=== PATIENT | female | born 1960 | race Caucasian/White ===

== ENCOUNTER 2016-11-08 19:04 | Emergency (ER) | payer MEDICARE, OTHER ==
--- NOTE | 2016-11-08 20:51 | ED ---
URI HPI - General Chief Complaint: Upper Respiratory Infection Stated Complaint: Sinus Problems Time Seen by Provider: 11/08/16 20:27 Source: patient Mode of arrival: ambulatory Limitations: no limitations - History of Present Illness Initial Comments: 56-year-old female patient was sent to emergency department today for complaints of upper respiratory symptoms. Patient states that symptoms started with a sore throat 5 days ago, the sore throat has since resolved however she now has nasal drainage and facial pressure. States that the nasal drainage is clear. States that today she started to have a dry cough. She states she has been taking Sudafed which did stop the nasal drainage however she is still stuffy. She states that she is getting headaches from this. Patient denies any recent fever, chills, sputum production, shortness breath, chest pain, abdominal pain, nausea, vomiting, diarrhea, constipation, back pain, numbness, tingling, weakness, hematuria, headache, visual changes, or any other complaints. Patient does admit to smoking cigarettes. - Related Data Home Medications Medication Instructions Recorded Confirmed Pseudoephedrine [Sudafed] 30 mg PO Q4H PRN 11/08/16 11/08/16 Simvastatin [Zocor] 40 mg PO HS 11/08/16 11/08/16 traMADol HCL [Ultram] 50 mg PO BID PRN 11/08/16 11/08/16 Previous Rx's Medication Instructions Recorded Loratadine-Pseudoeph 10-240 mg 1 each PO DAILY #10 tab 11/08/16 [Claritin-D 24 Hr] Triamcinolone Acetonide [Nasacort] 2 spray EA NOSTRIL DAILY #1 bottle 11/08/16 Allergies Allergy/AdvReac Type Severity Reaction Status Date / Time aspirin Allergy NOSE BLEEDS Verified 11/08/16 20:11 cephalexin monohydrate Allergy Swelling/RA Verified 11/08/16 20:11 [From Keflex] SH/HIVES metformin HCl Allergy Rash/Hives/ Verified 11/08/16 20:11 [From Glucophage] SWELLING Penicillins Allergy Rash/Hives/ Verified 11/08/16 20:11 SWELLING Review of Systems ROS Statement: Those systems with pertinent positive or pertinent negative responses have been documented in the HPI. ROS Other: All systems not noted in ROS Statement are negative. Past Medical History Past Medical History: Cancer, Osteoarthritis (OA), Sleep Apnea/CPAP/BIPAP Additional Past Medical History / Comment(s): back pain, thyroid CA, pinched nerve in neck History of Any Multi-Drug Resistant Organisms: None Reported Past Surgical History: Cholecystectomy, Hysterectomy Additional Past Surgical History / Comment(s): LT LEG SKIN GRAFT, PARTIAL THYROIDECTOMY, carpal tunnel, RT CATARACT, Past Anesthesia/Blood Transfusion Reactions: Postoperative Nausea & Vomiting ( PONV) Past Psychological History: No Psychological Hx Reported, Depression Smoking Status: Current every day smoker Past Alcohol Use History: None Reported Past Drug Use History: None Reported - Past Family History Sister(s) Family Medical History: Cancer Additional Family Medical History / Comment(s): ONE WITH COLON CA, ONE WITH LUNG CA General Exam Limitations: no limitations General appearance: alert, in no apparent distress Eye exam: Present: normal appearance, PERRL, EOMI. Absent: scleral icterus, conjunctival injection, periorbital swelling ENT exam: Present: normal exam, normal oropharynx, mucous membranes moist Neck exam: Present: normal inspection, full ROM. Absent: tenderness, meningismus, lymphadenopathy Respiratory exam: Present: normal lung sounds bilaterally. Absent: respiratory distress, wheezes, rales, rhonchi, stridor Cardiovascular Exam: Present: regular rate, normal rhythm, normal heart sounds. Absent: systolic murmur, diastolic murmur, rubs, gallop, clicks GI/Abdominal exam: Present: soft, normal bowel sounds. Absent: distended, tenderness, guarding, rebound, rigid Extremities exam: Present: normal inspection, full ROM, normal capillary refill. Absent: tenderness, pedal edema, joint swelling, calf tenderness Back exam: Present: normal inspection Neurological exam: Present: alert, oriented X3, CN II-XII intact Psychiatric exam: Present: normal affect, normal mood Skin exam: Present: warm, dry, intact, normal color. Absent: rash Course Vital Signs 11/08/16 11/08/16 11/08/16 19:20 19:25 21:01 Temperature 99.3 F 97.6 F Pulse Rate 95 94 Respiratory 20 18 Rate Blood Pressure 176/104 167/74 138/63 O2 Sat by Pulse 96 94 L Oximetry Medical Decision Making - Medical Decision Making 56-year-old female patient presented to emergency department today for upper respiratory symptoms. Physical exam is unremarkable, lungs are clear. Vital signs stable. Low suspicion for pneumonia due to patient being afebrile, no sputum production, no chest discomfort, however did offer patient a chest x-ray to rule this out. Patient refuses chest x-ray and stated she just wondered which [id number] medication she should use to treat her symptoms. Did recommend Claritin-D as well as Nasacort nasal spray. Did discuss with her that her symptoms are most likely caused from a virus and do not require antibiotics at this time. She was instructed to follow-up with her primary care physician for a recheck in 1-2 days. She was instructed to return here immediately should develop any fever, sputum production, chest pain, or any other new, worsening, or concerning symptoms. Patient verbalizes understanding and agrees with this plan. Disposition Clinical Impression: Upper respiratory infection Disposition: HOME SELF-CARE Condition: Good Instructions: Upper Respiratory Infection (ED) Additional Instructions: Increase fluids. Use prescriptions as directed. Follow-up with her primary care physician for recheck in 1-2 days. Return here immediately for any new, worsening, or concerning symptoms. Prescriptions: Loratadine-Pseudoeph 10-240 mg [Claritin-D 24 Hr] 1 each PO DAILY #10 tab Triamcinolone Acetonide [Nasacort] 2 spray EA NOSTRIL DAILY #1 bottle Referrals: Frederick Sandhu MD [Primary Care Provider] - 1-2 days Time of Disposition: 20:51
[2016-11-08 21:02] VITALS: BP 138/63; PULSE 94; RESP 18; TEMP 97.6
== END 2016-11-08 21:02 | disposition home or self-care (01) ==
LOC: EC 19:04
DX: J06.9 Acute upper respiratory infection, unspecified (principal); R51 Headache; Z85.850 Personal history of malignant neoplasm of thyroid; F17.200 Nicotine dependence, unspecified, uncomplicated; Z79.899 Other long term (current) drug therapy; Z88.6 Allergy status to analgesic agent; Z88.0 Allergy status to penicillin; Z88.1 Allergy status to other antibiotic agents; Z88.8 Allergy status to other drugs, medicaments and biological substances
CPT/HCPCS: 99282

== ENCOUNTER → 2016-11-25 | Outpatient (CLI) | payer MEDICARE, OTHER ==
--- NOTE | 2016-11-25 15:01 | XR ---
EXAMINATION TYPE: XR shoulder complete LT DATE OF EXAM: 11/25/2016 CLINICAL HISTORY: Left shoulder pain for 3 weeks TECHNIQUE: Three views of the left shoulder are obtained. COMPARISON: None. FINDINGS: There is no acute fracture in the left shoulder. The humeral head is situated slightly ant erior to the scapula on the scapular Y view, however overlaps with the glenoid on the internal rotati on and anterior posterior view and therefore there is no evidence of dislocation. Mild degenerative c hanges of the glenohumeral joint and acromioclavicular joint are seen. Calcifications at the supraspi natus/subscapularis insertion relate to calcific tendinosis and could relate to underlying CPPD. Visu alized ribs appear intact with no displaced rib fracture. IMPRESSION: 1. There is no acute fracture or dislocation in the left shoulder. 2. Calcific tendinosis of the supraspinatus/subscapularis tendinous insertions on the greater tuberos ity that could relate to underlying CPPD. 3. Mild glenohumeral and acromioclavicular arthropathy.
== END | disposition home or self-care (01) ==
LOC: RADXRMAIN 13:30
PROVIDERS: ATTEND Family Medicine
DX: M12.812 Other specific arthropathies, not elsewhere classified, left shoulder (principal); M75.82 Other shoulder lesions, left shoulder

== ENCOUNTER 2018-06-08 12:03 | Emergency (ER) | payer MEDICARE, OTHER ==
[2018-06-08 12:21] VITALS: BP 130/77; PULSE 87; RESP 18; TEMP 98.2
[2018-06-08 12:32] LABS: Glucose,Whole Blood 168 mg/dL (75-99)
--- NOTE | 2018-06-08 12:44 | ED ---
Neuro HPI - General Chief Complaint: Neuro Symptoms/Deficit Stated Complaint: Lt arm numbness arm/leg feel heavy Time Seen by Provider: 06/08/18 12:24 Source: patient, RN notes reviewed, old records reviewed Mode of arrival: wheelchair Limitations: physical limitation - History of Present Illness Is the patient presenting with stroke symptoms?: Yes -: hour(s) Initial Comments: This is a 57-year-old female the ER for evaluation patient presents today for evaluation regards to not feeling well. Heaviness in her arms and legs are last night did resolve and again again started this morning around 9:30. Patient has no focal neurologic deficit weakness or symptoms and tingling in left upper and left lower extremity. No prior history of CVA Location: left arm, left leg History of same: Yes (last night self limited similar episode) Place: home Severity: mild Quality: numb (LLE), tingling (LUE) Improves With: none Worsens With: none On Anticoagulants: No Context: gradual onset Associated Symptoms: denies other symptoms - Related Data Home Medications: Home Medications Medication Instructions Recorded Confirmed No Known Home Medications 06/08/18 06/08/18 Allergies/Adverse Reactions: Allergies Allergy/AdvReac Type Severity Reaction Status Date / Time aspirin Allergy NOSE BLEEDS Verified 06/08/18 12:56 cephalexin monohydrate Allergy Swelling/RA Verified 06/08/18 12:56 [From Keflex] SH/HIVES metformin HCl Allergy Rash/Hives/ Verified 06/08/18 12:56 [From Glucophage] SWELLING Penicillins Allergy Rash/Hives/ Verified 06/08/18 12:56 SWELLING Review of Systems ROS Statement: Those systems with pertinent positive or pertinent negative responses have been documented in the HPI. ROS Other: All systems not noted in ROS Statement are negative. General Exam - General Exam Comments Initial Comments: NIH 2 Limitations: physical limitation General appearance: alert, in no apparent distress Head exam: Present: atraumatic, normocephalic, normal inspection Eye exam: Present: normal appearance, PERRL, EOMI. Absent: scleral icterus, conjunctival injection, periorbital swelling ENT exam: Present: normal exam, mucous membranes moist Neck exam: Present: normal inspection. Absent: tenderness, meningismus, lymphadenopathy Respiratory exam: Present: normal lung sounds bilaterally. Absent: respiratory distress, wheezes, rales, rhonchi, stridor Cardiovascular Exam: Present: regular rate, normal rhythm, normal heart sounds. Absent: systolic murmur, diastolic murmur, rubs, gallop, clicks GI/Abdominal exam: Present: soft, normal bowel sounds. Absent: distended, tenderness, guarding, rebound, rigid Extremities exam: Present: normal inspection, full ROM, normal capillary refill. Absent: tenderness, pedal edema, joint swelling, calf tenderness Back exam: Present: normal inspection Neurological exam: Present: alert, oriented X3, CN II-XII intact Psychiatric exam: Present: normal affect, normal mood Skin exam: Present: warm, dry, intact, normal color. Absent: rash Stroke MDM - Lab Data Result diagrams: 06/08/18 12:51 06/08/18 12:51 Lab Results 06/08/18 06/08/18 06/08/18 Range/Units 12:20 12:51 12:51 WBC 8.5 (3.8-10.6) k/uL RBC 5.41 H (3.80-5.40) m/uL Hgb 15.8 (11.4-16.0) gm/dL Hct 48.2 H (34.0-46.0) % MCV 89.1 (80.0-100.0) fL MCH 29.1 (25.0-35.0) pg MCHC 32.7 (31.0-37.0) g/dL RDW 13.2 (11.5-15.5) % Plt Count 230 (150-450) k/uL Neutrophils % 68 % Lymphocytes % 25 % Monocytes % 4 % Eosinophils % 1 % Basophils % 0 % Neutrophils # 5.7 (1.3-7.7) k/uL Lymphocytes # 2.1 (1.0-4.8) k/uL Monocytes # 0.4 (0-1.0) k/uL Eosinophils # 0.1 (0-0.7) k/uL Basophils # 0.0 (0-0.2) k/uL PT (9.0-12.0) sec INR (<1.2) APTT (22.0-30.0) sec Sodium 138 (137-145) mmol/L Potassium 4.7 (3.5-5.1) mmol/L Chloride 105 (98-107) mmol/L Carbon Dioxide 28 (22-30) mmol/L Anion Gap 5 mmol/L BUN 13 (7-17) mg/dL Creatinine 0.52 (0.52-1.04) mg/dL Est GFR (CKD-EPI)AfAm >90 (>60 ml/min/1.73 sqM) Est GFR (CKD-EPI)NonAf >90 (>60 ml/min/1.73 sqM) Glucose 162 H (74-99) mg/dL POC Glucose (mg/dL) 168 H (75-99) mg/dL POC Glu [employer] ID Lynne Hurtado Calcium 9.5 (8.4-10.2) mg/dL Total Bilirubin 0.8 (0.2-1.3) mg/dL AST 25 (14-36) U/L ALT 23 (9-52) U/L Alkaline Phosphatase 92 (38-126) U/L Troponin I (0.000-0.034) ng/mL Total Protein 7.4 (6.3-8.2) g/dL Albumin 4.2 (3.5-5.0) g/dL 06/08/18 06/08/18 Range/Units 12:51 12:51 WBC (3.8-10.6) k/uL RBC (3.80-5.40) m/uL Hgb (11.4-16.0) gm/dL Hct (34.0-46.0) % MCV (80.0-100.0) fL MCH (25.0-35.0) pg MCHC (31.0-37.0) g/dL RDW (11.5-15.5) % Plt Count (150-450) k/uL Neutrophils % % Lymphocytes % % Monocytes % % Eosinophils % % Basophils % % Neutrophils # (1.3-7.7) k/uL Lymphocytes # (1.0-4.8) k/uL Monocytes # (0-1.0) k/uL Eosinophils # (0-0.7) k/uL Basophils # (0-0.2) k/uL PT 10.2 (9.0-12.0) sec INR 0.9 (<1.2) APTT 24.1 (22.0-30.0) sec Sodium (137-145) mmol/L Potassium (3.5-5.1) mmol/L Chloride (98-107) mmol/L Carbon Dioxide (22-30) mmol/L Anion Gap mmol/L BUN (7-17) mg/dL Creatinine (0.52-1.04) mg/dL Est GFR (CKD-EPI)AfAm (>60 ml/min/1.73 sqM) Est GFR (CKD-EPI)NonAf (>60 ml/min/1.73 sqM) Glucose (74-99) mg/dL POC Glucose (mg/dL) (75-99) mg/dL POC Glu [employer] ID Calcium (8.4-10.2) mg/dL Total Bilirubin (0.2-1.3) mg/dL AST (14-36) U/L ALT (9-52) U/L Alkaline Phosphatase (38-126) U/L Troponin I <0.012 (0.000-0.034) ng/mL Total Protein (6.3-8.2) g/dL Albumin (3.5-5.0) g/dL - NIH Stroke Scale 1a. Level of Consciousness: (0) alert 1b. LOC Questions: (0) answers correctly 1c. LOC Commands: (0) performs tasks correctly 2. Best Gaze: (0) normal 3. Visual: (0) no visual loss 4. Facial Palsy: (0) normal symmetrical movement 5a. Motor Arm Left: (0) no drift 5b. Motor Arm Right: (0) no drift 6a. Motor Leg Left: (0) no drift 6b. Motor Leg Right: (0) no drift 7. Limb Ataxia: (0) absent 8. Sensory: (0) normal 9. Best Language: (0) no aphasia 10. Dysarthria: (0) normal 11. Extinction/Inattention: (0) no abnormality NIH Score total: 0 - Thrombolytic Inclusion/Exclusion Thrombolytic Inclusion Criteria: Ischemic Stroke Onset< 3h - Radiology Data Radiology results: report reviewed (CT brain CTA had not negative for acute disease), image reviewed - EKG Data -: EKG Interpreted by Me (EKG shows normal sinus rhythm rate of 81, [place] 1:30, QRS 90, QTc 446) Past Medical History Past Medical History: Cancer, Osteoarthritis (OA) Additional Past Medical History / Comment(s): back pain, thyroid CA, pinched nerve in neck History of Any Multi-Drug Resistant Organisms: None Reported Past Surgical History: Cholecystectomy, Hysterectomy Additional Past Surgical History / Comment(s): LT LEG SKIN GRAFT, PARTIAL THYROIDECTOMY, carpal tunnel, RT CATARACT, Past Anesthesia/Blood Transfusion Reactions: Postoperative Nausea & Vomiting (PONV) Past Psychological History: No Psychological Hx Reported, Depression Smoking Status: Current every day smoker Past Alcohol Use History: None Reported Past Drug Use History: None Reported - Past Family History Sister(s) Family Medical History: Cancer Additional Family Medical History / Comment(s): ONE WITH COLON CA, ONE WITH LUNG CA Course Vital Signs 06/08/18 12:13 Temperature 98.2 F Pulse Rate 87 Respiratory 18 Rate Blood Pressure 130/77 O2 Sat by Pulse 97 Oximetry - Reevaluation(s) Reevaluation #1: 06/08/18 14:11 Adequate record reviewed Reevaluation #2: 06/08/18 14:11 Patient symptoms are resolved here in the emergency room, she has no complaints and no neurological deficit Reevaluation #3: 06/08/18 14:11 Patient does admit to increased stress as she has recently lost her Disposition Clinical Impression: Transient cerebral ischemia, Paresthesia of left arm, Paresthesia of left leg Disposition: HOME SELF-CARE Condition: Good Instructions (If sedation given, give patient instructions): Transient Ischemic Attack (ED), Paresthesia (ED) Is patient prescribed a controlled substance at d/c from ED?: No Referrals: Yesi Marina MD [Primary Care Provider] - 1-2 days
[2018-06-08] MEDS ORDERED: SODIUM CHLORIDE 0.9% 1,000 ML IV STA (12:46)
[2018-06-08 13:14] LABS: Basophils % (A) 0 %; Eosinophils # (A) 0.1 k/uL (0-0.7); Eosinophils % (A) 1 %; HCT 48.2 % (34.0-46.0); HGB 15.8 gm/dL (11.4-16.0); Lymphocytes # (A) 2.1 k/uL (1.0-4.8); Lymphocytes % (A) 25 %; MCH 29.1 pg (25.0-35.0); MCHC 32.7 g/dL (31.0-37.0); MCV 89.1 fL (80.0-100.0); Mean Platelet Volume 7.5; Monocytes # (A) 0.4 k/uL (0-1.0); Monocytes % (A) 4 %; Neutrophils # (A) 5.7 k/uL (1.3-7.7); Neutrophils % (A) 68 %; Platelet Count 230 k/uL (150-450); RBC 5.41 m/uL (3.80-5.40); RDW 13.2 % (11.5-15.5); WBC 8.5 k/uL (3.8-10.6)
[2018-06-08 13:21] LABS: INR 0.9 (<1.2); Partial Thromboplastin Time 24.1 sec (22.0-30.0); Prothrombin Time 10.2 sec (9.0-12.0)
[2018-06-08 13:22] LABS: Albumin 4.2 g/dL (3.5-5.0); Anion Gap 5 mmol/L; Blood Urea Nitrogen 13 mg/dL (7-17); Calcium 9.5 mg/dL (8.4-10.2); Carbon Dioxide 28 mmol/L (22-30); Chloride 105 mmol/L (98-107); Glucose 162 mg/dL (74-99); Sodium 138 mmol/L (137-145); Total Bilirubin 0.8 mg/dL (0.2-1.3); Total Protein 7.4 g/dL (6.3-8.2)
[2018-06-08 13:23] LABS: Potassium 4.7 mmol/L (3.5-5.1)
[2018-06-08 13:24] LABS: ALT 23 U/L (9-52); AST 25 U/L (14-36); Alkaline Phosphatase 92 U/L (38-126)
--- NOTE | 2018-06-08 13:33 | XR ---
EXAMINATION TYPE: XR chest 2V DATE OF EXAM: 06/08/2018 COMPARISON: NONE HISTORY: Shortness of breath TECHNIQUE: Frontal and lateral views of the chest are obtained. FINDINGS: Scattered senescent parenchymal changes noted. Hyperinflation compatible with COPD. No evidence for infiltrate. No evidence for atelectasis. Heart size is stable. Mediastinal structures are stable and grossly unremarkable. No evidence for hilar prominence. Degenerative changes dorsal spine. IMPRESSION: 1. No evidence for acute pulmonary disease.
--- NOTE | 2018-06-08 13:41 | CT ---
EXAMINATION TYPE: CT brain wo con for TPA DATE OF EXAM: 06/08/2018 COMPARISON: None HISTORY: Lt arm numbness, Lt leg heaviness CT DLP: 998.1 mGycm Automated exposure control for dose reduction was used. FINDINGS: No acute intracranial hemorrhage, midline shift or mass effect. Jackson-white matter interface is mainta ined. Incidental note of a partially into sella turcica. The ventricles and peripheral sulci are unre markable. Right ocular lenses surgically absent. Mild mucosal thickening is present within the ethmoi d sinuses. Minimal mucosal thickening is seen within the sphenoid sinus on the right. Remainder of th e para nasal sinuses and mastoid air cells are well aerated. IMPRESSION: NO ACUTE INTRACRANIAL PROCESS.
--- NOTE | 2018-06-08 14:06 | CT ---
EXAMINATION TYPE: CT angio head neck DATE OF EXAM: 06/08/2018 COMPARISON: CT brain 06/08/2018 HISTORY: Lt arm numbness, Lt leg heaviness CT DLP: 410.5 mGycm CONTRAST: Performed with IV Contrast, patient injected with 65 mL of Isovue 370. Combination Contrast CTA cervical carotids and [place] CTA cervical carotids with 3-D recons truction Contrast CTA of the cervical carotids was performed 3-D reconstruction imaging obtained at a separate workstation. Right carotid system: Mild plaque is seen of the right common carotid artery. There is mild plaque a lso noted at the carotid bulb and proximal ICA. No significant diameter reduction. ECA is patent. Right vertebral artery appears unremarkable. Left carotid system: Mild plaque is seen of the left common carotid artery. There is mild plaque als o noted at the carotid bulb and proximal ICA. No significant diameter reduction. ECA is patent. Lef t vertebral artery appears unremarkable. IMPRESSION: 1. No significant diameter reduction to account for the patient's symptoms. CTA the [place] with 3-D reconstruction Contrast CTA of the the [place] was performed 3-D reconstruction imaging obtained at a separate workstation. Vertebrobasilar system as well as intracranial portions of the internal carotid arteries and their ma nicci tributaries are patent. I do not see evidence for sizable aneurysm or vascular malformation. Pl ease note MRI provides greater sensitivity and specificity. Visualized brain appears grossly unremar kable. IMPRESSION: 1. No significant abnormality.
== END 2018-06-08 14:43 | disposition home or self-care (01) ==
LOC: EC 12:03
DX: G45.9 Transient cerebral ischemic attack, unspecified (principal); F17.200 Nicotine dependence, unspecified, uncomplicated; Z85.850 Personal history of malignant neoplasm of thyroid; Z88.6 Allergy status to analgesic agent; Z88.1 Allergy status to other antibiotic agents; Z88.8 Allergy status to other drugs, medicaments and biological substances; Z88.0 Allergy status to penicillin
CPT/HCPCS: 36415; 93005; 80053; 84484; 85025; 85610; 85730; 71046; 70496; 70450; 70498; 99285; 96360; Q9967; 84443

== ENCOUNTER → 2018-06-29 | Outpatient (CLI) | payer MEDICARE, OTHER ==
--- NOTE | 2018-06-29 13:30 | MR ---
EXAMINATION TYPE: MR brain wo/w con DATE OF EXAM: 06/29/2018 COMPARISON: CT brain 06/08/2018 HISTORY: Bilateral precerebral artery syndromes, TIA TECHNIQUE: Multiplanar, multisequence images of the brain and brainstem is performed without and with IV contras t, utilizing 7.5 mL intravenous Gadavist . FINDINGS: There is restricted diffusion involving the thalamus on the right with corresponding signal abnormalities seen on T1, T2 and inversion recovery sequences, an area measuring approximately 7 mm in anterior to posterior dimension. There is no extra-axial fluid collection. Scattered hyperintensi ties present on inversion recovery T2-weighted sequences within the periventricular, subcortical and juxtacortical white matter, approximately 50 lesions are present. The right duglas also shows some incr eased signal on T2, inversion recovery sequences, intermediate signal on T1-weighted images which may represent a small focal area of encephalomalacia. The ventricular system and cisternal spaces are no rmal in size and appearance. The brain volume is age appropriate. Midline structures demonstrate normal morphology with exception of a partially empty sella. The cran iocervical junction appears within normal limits. Post contrast images demonstrate no abnormal enhan cement. The dural venous sinuses appear patent. The visualized sinuses are remarkable for some inflam matory change in the ethmoid air cells and sphenoid sinus, and the globes are intact. IMPRESSION: Subacute infarct right thalamus. Findings may represent chronic small vessel ischemia wit hin the white matter, right duglas, consider vasculitis, hypertension, migraine headaches, multiple scl erosis in the appropriate clinical setting.
== END ==
LOC: RADMRIMAIN 09:45
PROVIDERS: ATTEND Psychiatry & Neurology Neurology
DX: I63.89 Other cerebral infarction (principal)
CPT/HCPCS: 70553; A9585

== ENCOUNTER 2018-08-14 15:01 | Emergency (ER) | payer MEDICARE, OTHER ==
[2018-08-14] MEDS ORDERED: DEXAMETHASONE SOD PHOSPHATE 10 MG/ML 1 ML VIAL IM STA (15:37)
[2018-08-14] MEDS ORDERED: DEXAMETHASONE SOD PHOSPHATE 10 MG/ML 1 ML VIAL IV STA (15:39)
--- NOTE | 2018-08-14 15:56 | ED ---
General Adult HPI - General Chief complaint: Neck Pain/Injury Stated complaint: Thyroid cancer, throat/facial pain. Time Seen by Provider: 08/14/18 15:26 Source: patient, RN notes reviewed, old records reviewed Mode of arrival: ambulatory Limitations: no limitations - History of Present Illness Initial comments: 57-year-old female presents with anterior neck pain. Pain has been present for the past 24 hours. She has remote history of thyroid cancer. She states the pain is sharp predominantly left-sided. Worse with swallowing. She states she has had some drooling. She denies fever or chills. Denies dyspnea. Denies chest pain or abdominal pain. She reports rhinorrhea but this is chronic and unchanged. She does report some sore throat as well as this anterior neck pain. - Related Data Home Medications Medication Instructions Recorded Confirmed No Known Home Medications 06/08/18 08/14/18 Allergies Allergy/AdvReac Type Severity Reaction Status Date / Time aspirin Allergy NOSE BLEEDS Verified 08/14/18 17:04 cephalexin monohydrate Allergy Swelling/RA Verified 08/14/18 17:04 [From Keflex] SH/HIVES metformin HCl Allergy Rash/Hives/ Verified 08/14/18 17:04 [From Glucophage] SWELLING Penicillins Allergy Rash/Hives/ Verified 08/14/18 17:04 SWELLING Review of Systems ROS Statement: Those systems with pertinent positive or pertinent negative responses have been documented in the HPI. ROS Other: All systems not noted in ROS Statement are negative. Past Medical History Past Medical History: Cancer, Osteoarthritis (OA) Additional Past Medical History / Comment(s): back pain, thyroid CA, pinched nerve in neck History of Any Multi-Drug Resistant Organisms: None Reported Past Surgical History: Cholecystectomy, Hysterectomy Additional Past Surgical History / Comment(s): LT LEG SKIN GRAFT, PARTIAL THYROIDECTOMY, carpal tunnel, RT CATARACT, Past Anesthesia/Blood Transfusion Reactions: Postoperative Nausea & Vomiting (PONV) Past Psychological History: No Psychological Hx Reported, Depression Smoking Status: Current every day smoker Past Alcohol Use History: None Reported Past Drug Use History: None Reported - Past Family History Sister(s) Family Medical History: Cancer Additional Family Medical History / Comment(s): ONE WITH COLON CA, ONE WITH LUNG CA General Exam Limitations: no limitations General appearance: alert, in no apparent distress Head exam: Present: atraumatic, normocephalic Eye exam: Present: normal appearance, PERRL ENT exam: Present: other (Mild pharyngeal erythema no tonsillar swelling or exudate, uvula midline, no asymmetry) Neck exam: Present: normal inspection, tenderness (Tenderness over the left sternocleidomastoid, no induration or fluctuance.) Respiratory exam: Present: normal lung sounds bilaterally. Absent: respiratory distress, wheezes Cardiovascular Exam: Present: regular rate, normal rhythm GI/Abdominal exam: Present: soft. Absent: distended, tenderness, guarding Extremities exam: Present: normal inspection, normal capillary refill. Absent: pedal edema Neurological exam: Present: alert, oriented X3, CN II-XII intact. Absent: motor sensory deficit Psychiatric exam: Present: normal affect, normal mood Skin exam: Present: warm, dry, intact. Absent: cyanosis, diaphoretic Course Vital Signs 08/14/18 08/14/18 15:13 15:59 Temperature 98.3 F Pulse Rate 86 77 Respiratory 18 16 Rate Blood Pressure 142/72 134/71 O2 Sat by Pulse 96 93 L Oximetry Medical Decision Making - Medical Decision Making 57-year-old female with neck pain. She does admit to having intermittent neck pain status post thyroid resection. She has pain over the sternocleidomastoid. There is no signs of infection. No palpable mass. She is tender in this region. CT is performed which is negative for any acute findings. She has norm al CBC, no leukocytosis, normal CMP. She has negative strep testing. She feels better with a dose of Decadron. - Lab Data Result diagrams: 08/14/18 16:00 08/14/18 16:00 Lab Results 08/14/18 08/14/18 08/14/18 Range/Units 16:00 16:00 Unknown WBC 8.7 (3.8-10.6) k/uL RBC 5.15 (3.80-5.40) m/uL Hgb 15.5 (11.4-16.0) gm/dL Hct 45.6 (34.0-46.0) % MCV 88.6 (80.0-100.0) fL MCH 30.1 (25.0-35.0) pg MCHC 33.9 (31.0-37.0) g/dL RDW 14.2 (11.5-15.5) % Plt Count 268 (150-450) k/uL Neutrophils % 68 % Lymphocytes % 24 % Monocytes % 5 % Eosinophils % 2 % Basophils % 0 % Neutrophils # 5.9 (1.3-7.7) k/uL Lymphocytes # 2.1 (1.0-4.8) k/uL Monocytes # 0.4 (0-1.0) k/uL Eosinophils # 0.1 (0-0.7) k/uL Basophils # 0.0 (0-0.2) k/uL Sodium 139 (137-145) mmol/L Potassium 4.4 (3.5-5.1) mmol/L Chloride 102 (98-107) mmol/L Carbon Dioxide 30 (22-30) mmol/L Anion Gap 7 mmol/L BUN 18 H (7-17) mg/dL Creatinine 0.61 (0.52-1.04) mg/dL Est GFR (CKD-EPI)AfAm >90 (>60 ml/min/1.73 sqM) Est GFR (CKD-EPI)NonAf >90 (>60 ml/min/1.73 sqM) Glucose 145 H (74-99) mg/dL Calcium 9.2 (8.4-10.2) mg/dL Total Bilirubin 0.5 (0.2-1.3) mg/dL AST 23 (14-36) U/L ALT 17 (9-52) U/L Alkaline Phosphatase 97 (38-126) U/L Total Protein 7.2 (6.3-8.2) g/dL Albumin 4.1 (3.5-5.0) g/dL Group A Strep Rapid Negative (Negative) Disposition Clinical Impression: Strain of neck muscle Disposition: HOME SELF-CARE Condition: Good Instructions (If sedation given, give patient instructions): Cervical Strain (ED) Is patient prescribed a controlled substance at d/c from ED?: No Referrals: Yesi Marian MD [Primary Care Provider] - 1-2 days Time of Disposition: 17:30
[2018-08-14 16:08] LABS: Basophils % (A) 0 %; Eosinophils # (A) 0.1 k/uL (0-0.7); Eosinophils % (A) 2 %; HCT 45.6 % (34.0-46.0); HGB 15.5 gm/dL (11.4-16.0); Lymphocytes # (A) 2.1 k/uL (1.0-4.8); Lymphocytes % (A) 24 %; MCH 30.1 pg (25.0-35.0); MCHC 33.9 g/dL (31.0-37.0); MCV 88.6 fL (80.0-100.0); Mean Platelet Volume 7.3; Monocytes # (A) 0.4 k/uL (0-1.0); Monocytes % (A) 5 %; Neutrophils # (A) 5.9 k/uL (1.3-7.7); Neutrophils % (A) 68 %; Platelet Count 268 k/uL (150-450); RBC 5.15 m/uL (3.80-5.40); RDW 14.2 % (11.5-15.5); WBC 8.7 k/uL (3.8-10.6)
[2018-08-14 16:24] LABS: ALT 17 U/L (9-52); AST 23 U/L (14-36); African American GFR (CKD) >90 (>60 ml/min/1.73 sqM); Albumin 4.1 g/dL (3.5-5.0); Alkaline Phosphatase 97 U/L (38-126); Anion Gap 7 mmol/L; Blood Urea Nitrogen 18 mg/dL (7-17); Calcium 9.2 mg/dL (8.4-10.2); Carbon Dioxide 30 mmol/L (22-30); Chloride 102 mmol/L (98-107); Glucose 145 mg/dL (74-99); Potassium 4.4 mmol/L (3.5-5.1); Sodium 139 mmol/L (137-145); Total Bilirubin 0.5 mg/dL (0.2-1.3); Total Protein 7.2 g/dL (6.3-8.2)
--- NOTE | 2018-08-14 17:19 | CT ---
EXAMINATION TYPE: CT soft tissue neck w con DATE OF EXAM: 08/14/2018 5:01 PM COMPARISON: None HISTORY: Neck pain and dysphagia. CT DLP: 267.1 mGycm Automated exposure control for dose reduction was used. CONTRAST: CT scan of the neck is performed following with IV Contrast, patient injected with 100 mL of Isovue 3 00. Axial images are obtained, coronal and sagittal reformatted images are reviewed. FINDINGS: There is normal branching pattern of the great vessels on the aortic arch. There is atheromatous baker ge in the thoracic aorta. There is absence of the left thyroid lobe which could relate to previous forrest rgery. Epiglottis appears normal. Subglottic trachea appears normal. The tongue is symmetric. There is no ev idence of a pharyngeal mass. Submandibular salivary glands are symmetric. The parotid glands are symmetric. There is anterior fusi on surgery in the lower cervical spine. I see no focal bone destruction. The paranasal sinuses show n ormal aeration. IMPRESSION: Negative CT scan of the cervical soft tissues.
[2018-08-14 18:01] VITALS: BP 122/69; PULSE 81; RESP 18; TEMP 98
== END 2018-08-14 18:03 | disposition home or self-care (01) ==
LOC: EC 15:01
DX: S16.1XXA Strain of muscle, fascia and tendon at neck level, initial encounter (principal); J34.89 Other specified disorders of nose and nasal sinuses; J02.9 Acute pharyngitis, unspecified; F17.200 Nicotine dependence, unspecified, uncomplicated; Z85.850 Personal history of malignant neoplasm of thyroid; Z90.89 Acquired absence of other organs; Z88.6 Allergy status to analgesic agent; Z88.1 Allergy status to other antibiotic agents; Z88.8 Allergy status to other drugs, medicaments and biological substances; Z88.0 Allergy status to penicillin; Z53.8 Procedure and treatment not carried out for other reasons
CPT/HCPCS: 36415; 80053; 85025; 87081; 87430; 70491; 99284; 96374; J1100; Q9967

== ENCOUNTER 2018-11-25 21:00 | Emergency (ER) | payer MEDICARE, OTHER ==
[2018-11-25] MEDS ORDERED: MORPHINE SULFATE 4 MG/ML SYRINGE IM STA (22:28)
--- NOTE | 2018-11-25 23:11 | XR ---
EXAMINATION TYPE: XR Hip LT and AP Pelvis DATE OF EXAM: 11/25/2018 COMPARISON: 03/08/2010 HISTORY: Pain in the left hip. Fall. TECHNIQUE: A single AP view of the pelvis is obtained. Two views of the left hip are obtained. FINDINGS: There is slight deformity of the left superior and inferior pubic rami. Proximal left femur and hip joint appear intact. There is no sign of hip dysplasia. I see no femoral fracture. There is mild acetabular spurring. Sacroiliac joints appear intact. IMPRESSION: There is evidence of acute fractures left superior and inferior pubic rami.
--- NOTE | 2018-11-25 23:12 | XR ---
EXAMINATION TYPE: XR lumbosacral spine min 4V DATE OF EXAM: 11/25/2018 COMPARISON: 01/03/2014 HISTORY: Pain TECHNIQUE: 5 views FINDINGS: Vertebra have normal alignment. There is no compression fracture. There is spurring of the endplates. There is no significant disc space narrowing. IMPRESSION: Multilevel hypertrophic degenerative disc changes. No fracture seen. No significant ramirez e compared to old exam.
[2018-11-25 23:23] VITALS: BP 129/62; PULSE 79; RESP 18; TEMP 98
--- NOTE | 2018-11-25 23:31 | ED ---
Back Pain HPI - General Chief Complaint: Back Pain/Injury Stated Complaint: Fall Time Seen by Provider: 11/25/18 21:49 Source: patient, family Limitations: no limitations - History of Present Illness Initial Comments: 58-year-old female patient presents to the emergency department today for evaluation of left hip and left buttock pain after experiencing a slip and fall in the shower. Patient states one to 2 hours prior to arrival she was taking a shower when she slipped and fell backwards landing on her buttocks. She denies hitting her head or losing consciousness. Patient states since the injury she has been experiencing pain to the left buttock and left hip. Patient states the pain increases whenever she bears weight on the left leg. States she is able to ambulate but it is very difficult. Denies taking any pain medication for her symptoms. She denies any previous injury to the left hip. Patient denies any headache, neck pain, back pain, chest pain, shortness of breath, dizziness, weakness, abdominal pain, nausea, vomiting, or difficulties with bowel movements or urination. - Related Data Previous Rx's Medication Instructions Recorded Hydrocodone/Acetaminophen [Myra 1 tab PO Q6HR PRN #12 tab 11/25/18 5-325] Allergies Allergy/AdvReac Type Severity Reaction Status Date / Time aspirin Allergy NOSE BLEEDS Verified 11/25/18 21:54 cephalexin monohydrate Allergy Swelling/RA Verified 11/25/18 21:54 [From Keflex] SH/HIVES metformin HCl Allergy Rash/Hives/ Verified 11/25/18 21:54 [From Glucophage] SWELLING Penicillins Allergy Rash/Hives/ Verified 11/25/18 21:54 SWELLING Review of Systems ROS Statement: Those systems with pertinent positive or pertinent negative responses have been documented in the HPI. ROS Other: All systems not noted in ROS Statement are negative. Past Medical History Past Medical History: Cancer, Osteoarthritis (OA) Additional Past Medical History / Comment(s): back pain, thyroid CA, pinched nerve in neck History of Any Multi-Drug Resistant Organisms: None Reported Past Surgical History: Cholecystectomy, Hysterectomy Additional Past Surgical History / Comment(s): LT LEG SKIN GRAFT, PARTIAL THYROIDECTOMY, carpal tunnel, RT CATARACT, Past Anesthesia/Blood Transfusion Reactions: Postoperative Nausea & Vomiting (PONV) Past Psychological History: No Psychological Hx Reported, Depression Smoking Status: Current every day smoker Past Alcohol Use History: None Reported Past Drug Use History: None Reported - Past Family History Sister(s) Family Medical History: Cancer Additional Family Medical History / Comment(s): ONE WITH COLON CA, ONE WITH LUNG CA General Exam Limitations: no limitations General appearance: alert, in no apparent distress, other (This is a well- developed, well-nourished adult female patient in no acute distress. Vital signs upon presentation are temperature 98.7F, pulse 92, respirations 20, blood pressure 159/78, pulse ox 98% on room air.) Eye exam: Present: normal appearance, PERRL, EOMI. Absent: scleral icterus, conjunctival injection, periorbital swelling ENT exam: Present: normal exam, normal oropharynx, mucous membranes moist Neck exam: Present: normal inspection, full ROM, other (Nontender, no step-off, no deformity to firm midline palpation of the posterior cervical spine. Full range of motion without pain or limitation.). Absent: tenderness, meningismus, lymphadenopathy Respiratory exam: Present: normal lung sounds bilaterally. Absent: respiratory distress, wheezes, rales, rhonchi, stridor Cardiovascular Exam: Present: regular rate, normal rhythm, normal heart sounds. Absent: systolic murmur, diastolic murmur, rubs, gallop, clicks GI/Abdominal exam: Present: soft, normal bowel sounds. Absent: distended, tenderness, guarding, rebound, rigid Extremities exam: Present: normal inspection, normal capillary refill, other (There is left lateral hip tenderness. Skin to the left leg is pink, warm, dry. Cap refills less than 3 seconds. Pedal and posttibial pulses are 2+ and equal bilaterally.). Absent: full ROM (Increased pain with range of motion to the left hip), tenderness, pedal edema, joint swelling, calf tenderness Back exam: Present: normal inspection, other (Nontender, no step-off, no deformity to firm midline palpation of the thoracic and lumbar vertebrae. Full range of motion without pain or limitation.). Absent: vertebral tenderness Neurological exam: Present: alert, oriented X3, CN II-XII intact Psychiatric exam: Present: normal affect, normal mood Skin exam: Present: warm, dry, intact, normal color. Absent: rash Course Vital Signs 11/25/18 11/25/18 21:10 23:22 Temperature 98.7 F 98 F Pulse Rate 92 79 Respiratory 20 18 Rate Blood Pressure 159/78 129/62 O2 Sat by Pulse 98 97 Oximetry Medical Decision Making - Medical Decision Making 58-year-old female patient presents to the emergency department today for evaluation of left buttock and left hip pain after experiencing a slip and fall in the shower. Physical examination did reveal left lateral hip tenderness. Increased pain with range of motion. Neurovascular status was intact to the left hip. X-rays were obtained and did reveal left superior and inferior pelvic rami fractures. I did discuss findings and results with the patient. We did offer admission to see orthopedics in the morning, patient refused stating she wanted to be discharged home. As patient is ambulating at this time we will discharge home to follow-up with orthopedics outpatient. She'll be given prescription for a walker. She was given prescription for pain medication. She is instructed to follow-up with her primary care physician for recheck in 1-2 days. Return parameters are discussed in detail. She verbalizes understanding and agrees with this plan. - Radiology Data Radiology results: report reviewed, image reviewed Single view of the pelvis and 2 views of left hip are obtained. Report was reviewed in its entirety. Impression by Dr. Moon shows evidence of acute fractures of left superior and inferior pubic rami. 5 views of the lumbosacral spine are obtained. Report was reviewed in its entirety. Impression by Dr. Moon shows multilevel hypertrophic degenerative disc changes. No fracture seen. No significant change compared to old exam. Disposition Clinical Impression: Fracture of left pelvis Disposition: HOME SELF-CARE Condition: Good Instructions (If sedation given, give patient instructions): Pelvic Fracture (ED) Additional Instructions: Use walker to assist with ambulation. Take medication as directed for pain control. Follow up with medical transport specialist for recheck as soon as possible. Follow-up with her primary care physician for recheck in 1-2 days. Return to the emergency department immediately for any new, worsening, or concerning symptoms. Prescriptions: Hydrocodone/Acetaminophen [Myra 5-325] 1 tab PO Q6HR PRN #12 tab PRN Reason: Pain Is patient prescribed a controlled substance at d/c from ED?: No Referrals: Yesi Marina MD [Primary Care Provider] - 1-2 days Alex Bee DO [Doctor of Osteopathic Medicine] - 1-2 days Time of Disposition: 23:31
== END 2018-11-25 23:47 | disposition home or self-care (01) ==
LOC: EC 21:00
DX: S32.592A Other specified fracture of left pubis, initial encounter for closed fracture (principal); F17.200 Nicotine dependence, unspecified, uncomplicated; Z88.0 Allergy status to penicillin; Z88.1 Allergy status to other antibiotic agents; Z88.6 Allergy status to analgesic agent; Z88.8 Allergy status to other drugs, medicaments and biological substances; Z85.850 Personal history of malignant neoplasm of thyroid; W18.2XXA Fall in (into) shower or empty bathtub, initial encounter; Y93.E1 Activity, personal bathing and showering
CPT/HCPCS: 72110; 73502; 99283; 96372; J2270

== ENCOUNTER → 2020-05-07 | Outpatient (CLI) | payer MEDICARE, OTHER ==
--- NOTE | 2020-05-07 10:36 | XR ---
EXAMINATION TYPE: XR chest 2V DATE OF EXAM: 05/07/2020 COMPARISON: 06/08/2018 TECHNIQUE: PA and lateral views submitted. HISTORY: Cough FINDINGS: The lungs are clear and there is no pneumothorax, pleural effusion, or focal pneumonia. Postsurgica l change overlying the cervical spine. Diffuse osteopenia and arthropathy of the shoulders. Heart siz e normal. Mild hyperinflation. Hypertrophic and degenerative change spine. IMPRESSION: 1. No acute process. Correlate for COPD.
== END ==
LOC: RADNMMAIN 09:41
PROVIDERS: ATTEND Family Medicine
DX: R05 Cough (principal)
CPT/HCPCS: 71046

== ENCOUNTER → 2020-05-20 | Outpatient (CLI) | payer MEDICARE, OTHER ==
--- NOTE | 2020-05-21 13:55 | NM ---
EXAMINATION TYPE: NM thyroid image w uptake DATE OF EXAM: 05/21/2020 COMPARISON: CT neck August 14, 2018 HISTORY: Abnormal thyroid labs, thyroid nodule. TECHNIQUE: Thyroid iodine uptake is calculated and images performed after the oral administration of 300 uCi 1-123 Capsule. FINDINGS: There is normal distribution of activity throughout the right thyroid lobe. No left-sided u ptake corresponds to absent normal left thyroid lobe on CT. The 4 hour iodine uptake is calculated at 15 % (normal range 8-14%). The 24-hour iodine uptake is calculated at 31% (normal range 15-35%). IMPRESSION: Normal thyroid scan right lobe and overall normal 24-hour uptake or function.
== END | disposition home or self-care (01) ==
LOC: RADNMMAIN 09:33
PROVIDERS: ATTEND Family Medicine
DX: E04.1 Nontoxic single thyroid nodule (principal); R94.6 Abnormal results of thyroid function studies; Z85.850 Personal history of malignant neoplasm of thyroid; Z88.0 Allergy status to penicillin; Z88.1 Allergy status to other antibiotic agents; Z88.6 Allergy status to analgesic agent
CPT/HCPCS: 78012; A9516; 78014

== ENCOUNTER 2020-06-02 12:47 | Day surgery (SDC) | payer MEDICARE, OTHER ==
[2020-06-02 13:06] VITALS: RESP 16; TEMP 98.1
--- NOTE | 2020-06-02 14:21 | US ---
ULTRASOUND GUIDED FNA THYROID BIOPSY: CLINICAL HISTORY: Request for 2 right-sided thyroid nodules measuring greater than 1 cm FINDINGS: The procedure was explained to the patient. The risks, complications, benefits and alternatives were discussed and any questions were answered. Informed consent was obtained. Patient was placed supin e on the ultrasound table and prepped and draped in the usual sterile fashion. Utilizing a 25 gauge needle, five passes were made into the each of the requested right thyroid nodules. Patient was stable throughout the procedure. Pathology is pending. All elements of maximal barrier technique were utilized. IMPRESSION: 1. Successful ultrasound guided FNA thyroid biopsy.
[2020-06-02 14:28] VITALS: BP 131/76; PULSE 84
== END 2020-06-02 14:15 | disposition home or self-care (01) ==
LOC: RADPROMAIN 12:47
PROVIDERS: ATTEND Family Medicine
DX: E04.1 Nontoxic single thyroid nodule (principal)
CPT/HCPCS: 10005; 10006; 88173; 88305

== ENCOUNTER 2021-05-15 13:35 | Emergency (ER) | payer MEDICARE, OTHER ==
[2021-05-15 14:17] VITALS: TEMP 97.3
--- NOTE | 2021-05-15 14:40 | XR ---
EXAMINATION TYPE: XR shoulder complete LT DATE OF EXAM: 05/15/2021 CLINICAL HISTORY: Pain. TECHNIQUE: Three views of the left shoulder are obtained. COMPARISON: Prior left shoulder x-ray November 25, 2016 FINDINGS: There is no acute fracture/dislocation evident in the left shoulder. Mild narrowing of acr omioclavicular joint with capsular hypertrophy. Distal acromion morphology unremarkable. Mild/moderat e narrowing glenohumeral joint. Subchondral cystic change superolateral aspect humeral head. The vis ualized ribs are intact . Partial visualization of anterior fusion plate cervicothoracic junction. IMPRESSION: As above. No significant change from prior study.
[2021-05-15] MEDS ORDERED: CYCLOBENZAPRINE 5 MG TAB PO STA (15:56)
[2021-05-15] MEDS ORDERED: KETOROLAC 15 MG/ML 1 ML VIAL IM STA (15:56)
--- NOTE | 2021-05-15 16:04 | ED ---
Upper Extremity HPI - General Chief Complaint: Extremity Injury, Upper Stated Complaint: left arm pain, 1 week Time Seen by Provider: 05/15/21 14:37 Source: patient, RN notes reviewed Mode of arrival: ambulatory Limitations: no limitations - History of Present Illness Initial Comments: This is a 60-year-old female who presents to the emergency department with left arm pain. States that yesterday she woke up with pain in the neck and posterior left shoulder. She has some pain spreading distally down into the arm, terminating just before the elbow. Most of her pain is situated posterior to the left shoulder. States that she did sleep in a poor position the night before the pain happened, as she was having a sleepover with her grandchildren and they tend to cause difficulty with sleeping. She also has a tendency to sleep on her left side. Denies any fevers/chills, redness, or swelling to the shoulder or arm. MD Complaint: Injury to:: left, shoulder Onset/Timin -: days(s) Other Injuries: none Place: home Improves With: immobilization Worsens With: movement of extremity - Related Data Previous Rx's Medication Instructions Recorded Cyclobenzaprine [Flexeril] 5 mg PO HS PRN #10 tab 05/15/21 Diclofenac Sodium [Voltaren] 50 mg PO BID PRN #20 tab 05/15/21 Allergies Allergy/AdvReac Type Severity Reaction Status Date / Time aspirin Allergy NOSE BLEEDS Verified 05/15/21 14:17 cephalexin monohydrate Allergy Swelling/RA Verified 05/15/21 14:17 [From Keflex] SH/HIVES metformin HCl Allergy Rash/Hives/ Verified 05/15/21 14:17 [From Glucophage] SWELLING Penicillins Allergy Rash/Hives/ Verified 05/15/21 14:17 SWELLING Review of Systems ROS Statement: Those systems with pertinent positive or pertinent negative responses have been documented in the HPI. ROS Other: All systems not noted in ROS Statement are negative. Constitutional: Denies: fever, chills ENT: Denies: ear pain, throat pain Respiratory: Denies: cough, dyspnea Cardiovascular: Denies: chest pain, palpitations Gastrointestinal: Denies: abdominal pain, nausea, vomiting, diarrhea Musculoskeletal: Reports: other (left shoulder pain). Denies: back pain Skin: Denies: rash Neurological: Denies: headache Past Medical History Past Medical History: Cancer, Osteoarthritis (OA) Additional Past Medical History / Comment(s): back pain, thyroid CA left lobe, p inched nerve in neck History of Any Multi-Drug Resistant Organisms: None Reported Past Surgical History: Cholecystectomy, Hysterectomy Additional Past Surgical History / Comment(s): LT LEG SKIN GRAFT, PARTIAL THYROIDECTOMY left lobe, carpal tunnel, RT CATARACT, Past Anesthesia/Blood Transfusion Reactions: Postoperative Nausea & Vomiting (PONV) Past Psychological History: Depression Smoking Status: Current every day smoker Past Alcohol Use History: None Reported Past Drug Use History: None Reported - Past Family History Sister(s) Family Medical History: Cancer Additional Family Medical History / Comment(s): ONE WITH COLON CA, ONE WITH LUNG CA General Exam Limitations: no limitations General appearance: alert, in no apparent distress Head exam: Present: atraumatic, normocephalic, normal inspection Neck exam: Present: normal inspection. Absent: tenderness, meningismus, lymphadenopathy Respiratory exam: Present: normal lung sounds bilaterally. Absent: respiratory distress, wheezes, rales, rhonchi, stridor Cardiovascular Exam: Present: regular rate, normal rhythm, normal heart sounds. Absent: systolic murmur, diastolic murmur, rubs, gallop, clicks Left Shoulder Exam: Present: normal inspection, tenderness (posterior aspect). Absent: full ROM (limited by pain), swelling, ecchymosis, deformity, crepitus, d islocation, erythema, tenderness over AC joint Upper Arm exam: Present: normal inspection. Absent: full ROM (limited by pain), tenderness, swelling Vascular: Present: normal capillary refill. Absent: vascular compromise, Pallo Neurological exam: Present: alert, oriented X3, CN II-XII intact Psychiatric exam: Present: normal affect, normal mood Skin exam: Present: warm, dry, intact, normal color. Absent: rash Course Vital Signs 05/15/21 14:14 Temperature 97.3 F L Pulse Rate 89 Respiratory 18 Rate Blood Pressure 153/68 O2 Sat by Pulse 97 Oximetry Medical Decision Making - Medical Decision Making This is a 60 year old female who presents to the emergency department for left shoulder/arm pain. XR revealed no acute abnormalities. Given that the pain is reproducable and she has no chest pain or SOB, a cardiac etiology is very unlikely. This is likely a musculoskeletal issue given the patient's exquisite tenderness, she also feels very tight upon palpation. Patient given IM toradol and flexeril in the emergency department which offered improvement. Symptoms likely related to a muscular strain. Patient discharged with a prescription for diclofenac and Flexeril. Patient advised to avoid taking diclofenac with ibuprofen. She can alternate this with Tylenol. Advised she take the Flexeril at night until she knows how it affects her, as it is likely to cause drowsiness. Tylenol #3 starter pack provided for more severe pain, I also advised she start out taking this at night until she knows how it effects her, as it is also likely cause drowsiness. Also advised applying heat to relax the muscles and improve symptoms. Return precautions reviewed in depth, the patient is instructed to return to the emergency department if symptoms worsen including but not limited to increased pain, swelling, or redness. Patient verbalized understanding. This case was discussed in detail with the attending ED physician. Presentation, findings, and treatment plan discussed in detail as well. - Radiology Data Radiology results: report reviewed, image reviewed Disposition Clinical Impression: Left shoulder strain Disposition: HOME SELF-CARE Instructions (If sedation given, give patient instructions): Muscle Strain (ED), Tendinitis (ED) Additional Instructions: Return to the emergency department if your pain worsens or does not improve. You can take 1-2 tablets of diclofenac up to 2 times daily for pain. Do not take this with Motrin, however you can alternate it with Tylenol. Take 1-2 tablets of Flexeril at night as needed for pain. Tylenol #3 starter pack provided, avoid driving or operating machinery on this as it can make you drowsy. Hot packs recommended as well. Prescriptions: Cyclobenzaprine [Flexeril] 5 mg PO HS PRN #10 tab PRN Reason: Pain Diclofenac Sodium [Voltaren] 50 mg PO BID PRN #20 tab PRN Reason: Pain Is patient prescribed a controlled substance at d/c from ED?: No Referrals: None,Stated [Primary Care Provider] - 1-2 days
[2021-05-15] MEDS ORDERED: ACET/COD 300 MG/30 MG STARTER PACK 6 TAB BTL PO STA (17:12)
[2021-05-15 17:31] VITALS: BP 124/60; PULSE 83; RESP 17
== END 2021-05-15 17:35 | disposition home or self-care (01) ==
LOC: EC 13:35
DX: S46.912A Strain of unspecified muscle, fascia and tendon at shoulder and upper arm level, left arm, initial encounter (principal); F17.200 Nicotine dependence, unspecified, uncomplicated; Z88.6 Allergy status to analgesic agent; Z88.1 Allergy status to other antibiotic agents; Z88.8 Allergy status to other drugs, medicaments and biological substances; Z88.0 Allergy status to penicillin; X58.XXXA Exposure to other specified factors, initial encounter
CPT/HCPCS: 73030; 99283; 96372; J1885

== ENCOUNTER 2021-05-23 13:03 | Emergency (ER) | payer MEDICARE, OTHER ==
[2021-05-23 13:08] VITALS: BP 154/80; PULSE 93; RESP 18; TEMP 98
[2021-05-23] MEDS ORDERED: HYDROmorphone 0.5 MG/0.5 ML SYRINGE IM STA (13:55)
[2021-05-23] MEDS ORDERED: ORPHENADRINE 30 MG/ML 2 ML VIAL IM STA (13:55)
[2021-05-23] MEDS ORDERED: methylPREDNISolone SOD SUCCI 125 MG/2 ML VIAL IM ONE (14:00)
--- NOTE | 2021-05-23 14:42 | ED ---
Upper Extremity HPI - General Chief Complaint: Extremity Injury, Upper Stated Complaint: L arm pain Time Seen by Provider: 05/23/21 13:50 Source: patient, RN notes reviewed Mode of arrival: ambulatory Limitations: no limitations - History of Present Illness Initial Comments: This is a 60-year-old female who presents to emergency department for continuati on of pain in the posterior left shoulder. She was in the emergency department 8 days ago, work up at that time revealed arthritic issues on the x-ray, but no acute changes. Her symptoms were managed in the emergency department and she was discharged home with anti-inflammatories and muscle relaxants. Patient states that her symptoms did not improve at home. She returns to the emergency department for continuation of pain. Pain is in the left upper back/posterior left shoulder. Pain is aggravated by any movement. She does have hardware in her neck from a previous surgery. She does not currently have a primary care provider, and has not seen a neurologist in several years. Denies fevers, chills, chest pain, or shortness of breath. - Related Data Previous Rx's Medication Instructions Recorded Cyclobenzaprine [Flexeril] 5 mg PO HS PRN #10 tab 05/15/21 HYDROcodone/APAP 5-325MG [[place] 5] 1 each PO Q6HR PRN #12 tab 05/23/21 Lidocaine [Lidoderm 5% Patch] 1 patch TRANSDERM DAILY #30 patch 05/23/21 methocarbamoL [Methocarbamol] 750 mg PO QID PRN #30 tablet 05/23/21 predniSONE 50 mg PO DAILY 5 Days #5 tab 05/23/21 Allergies Allergy/AdvReac Type Severity Reaction Status Date / Time aspirin Allergy NOSE BLEEDS Verified 05/23/21 13:05 cephalexin monohydrate Allergy Swelling/RA Verified 05/23/21 13:05 [From Keflex] SH/HIVES metformin HCl Allergy Rash/Hives/ Verified 05/23/21 13:05 [From Glucophage] SWELLING Penicillins Allergy Anaphylaxis Verified 05/23/21 13:05 Review of Systems ROS Statement: Those systems with pertinent positive or pertinent negative responses have been documented in the HPI. ROS Other: All systems not noted in ROS Statement are negative. Constitutional: Denies: fever, chills ENT: Denies: ear pain, throat pain Respiratory: Denies: cough, dyspnea Cardiovascular: Denies: chest pain, palpitations Endocrine: Denies: fatigue Gastrointestinal: Denies: abdominal pain, nausea, vomiting, diarrhea Genitourinary: Denies: urgency, dysuria Musculoskeletal: Reports: other (left posterior shoulder pain) Skin: Denies: rash Neurological: Denies: headache Past Medical History Past Medical History: Cancer, Osteoarthritis (OA) Additional Past Medical History / Comment(s): back pain, thyroid CA left lobe, pinched nerve in neck History of Any Multi-Drug Resistant Organisms: None Reported Past Surgical History: Cholecystectomy, Hysterectomy Additional Past Surgical History / Comment(s): LT LEG SKIN GRAFT, PARTIAL THYROIDECTOMY left lobe, carpal tunnel, RT CATARACT, Past Anesthesia/Blood Transfusion Reactions: Postoperative Nausea & Vomiting (PONV) Past Psychological History: Depression Smoking Status: Current every day smoker Past Alcohol Use History: None Reported Past Drug Use History: None Reported - Past Family History Sister(s) Family Medical History: Cancer Additional Family Medical History / Comment(s): ONE WITH COLON CA, ONE WITH LUNG CA General Exam Limitations: no limitations General appearance: alert, in distress Head exam: Present: atraumatic, normocephalic, normal inspection Neck exam: Present: normal inspection. Absent: tenderness, meningismus, lymphadenopathy Respiratory exam: Present: normal lung sounds bilaterally. Absent: respiratory distress, wheezes, rales, rhonchi, stridor Cardiovascular Exam: Present: regular rate, normal rhythm, normal heart sounds. Absent: systolic murmur, diastolic murmur, rubs, gallop, clicks Left Shoulder Exam: Present: normal inspection, tenderness (posterior aspect of the left shoulder). Absent: full ROM (limited by pain), swelling, abrasion, deformity, crepitus, erythema Vascular: Present: normal capillary refill. Absent: vascular compromise, Pallo Neurological exam: Present: alert, oriented X3, CN II-XII intact Psychiatric exam: Present: normal affect, normal mood Skin exam: Present: warm, dry, intact, normal color. Absent: rash Course Vital Signs 05/23/21 13:06 Temperature 98 F Pulse Rate 93 Respiratory 18 Rate Blood Pressure 154/80 O2 Sat by Pulse 98 Oximetry Medical Decision Making - Medical Decision Making This is a 60-year-old female who presents to the emergency department for continued left upper back/shoulder pain. Pain is reproducible with palpation and movement. The patient expresses concern about the hardware in her neck possibly becoming loose. We discussed the possibility of additional imaging, such as computed tomography scan, but the patient was advised that in her case, an MRI would be the best imaging option. Patient expresses interest in proceed with a computed tomography scan and was advised of the radiation risk. Computed tomography scan was ordered for further evaluation, and it did not reveal any abnormalities. I did attempt to order an ultrasound of the left shoulder to evaluate for any rotator cuff pathologies. The ultrasound department called [facility] and said that they do not perform this kind of ultrasound. Patient's symptoms were controlled in the emergency department. The patient will be discharged with different medication to further control symptoms. Patient was instructed to call Dr. Menjivar, her previous neurologist, for further evaluation. Patient will likely need an MRI for further workup. Return precautions reviewed in depth, the patient is instructed to return to the emergency department if symptoms worsen or do not improve. Patient verbalized understanding. This case was discussed in detail with the attending ED physician. Presentation, findings, and treatment plan discussed in detail as well. - Radiology Data Radiology results: report reviewed, image reviewed Disposition Clinical Impression: Cervical nerve root impingement, Cervical radiculopathy due to degenerative joint disease of spine Disposition: HOME SELF-CARE Instructions (If sedation given, give patient instructions): Rotator Cuff Injury (ED), Cervical Radiculopathy (ED), Shoulder Impingement Syndrome (ED) Additional Instructions: Return to the emergency department with any worsening or new concerning symptoms. Only take the [place]ona at night until you know how it affects you. Do not take the prednisone any other anti-inflammatories, such as Aleve or ibuprofen. You can take this with Tylenol. Contact Dr. Menjivar's office for an appointment. Prescriptions: Lidocaine [Lidoderm 5% Patch] 1 patch TRANSDERM DAILY #30 patch methocarbamoL [Methocarbamol] 750 mg PO QID PRN #30 tablet PRN Reason: Pain HYDROcodone/APAP 5-325MG [[place] 5] 1 each PO Q6HR PRN #12 tab PRN Reason: Pain predniSONE 50 mg PO DAILY 5 Days #5 tab Is patient prescribed a controlled substance at d/c from ED?: Yes If prescribed controlled substance>3 days was MAPS reviewed?: Prescribed <3 Days Referrals: None,Stated [Primary Care Provider] - 1-2 days Rena Menjivar MD [STAFF PHYSICIAN] - 1-2 days
--- NOTE | 2021-05-23 14:57 | CT ---
EXAMINATION TYPE: CT cervical spine wo con DATE OF EXAM: 05/23/2021 COMPARISON: None HISTORY: Left arm pain. No injury. CT DLP: 388.1 mGycm Automated exposure control for dose reduction was used. Images obtained from the skull base to T1 vertebra without contrast. The cervical vertebrae have normal alignment. There is anterior fusion from C5 to C7. Posterior eleme nts are intact. There is mild hypertrophic facet arthropathy. There is anterior spurring at C4-5 and T1-T2. No fracture seen. IMPRESSION: Previous surgery. Degenerative hypertrophic changes. No fracture seen.
[2021-05-23] MEDS ORDERED: LIDOCAINE 5% PATCH TOPICAL SCH (15:45)
== END 2021-05-23 16:22 | disposition home or self-care (01) ==
LOC: EC 13:03
DX: M50.10 Cervical disc disorder with radiculopathy, unspecified cervical region (principal); F17.200 Nicotine dependence, unspecified, uncomplicated; Z88.6 Allergy status to analgesic agent; Z88.1 Allergy status to other antibiotic agents; Z88.8 Allergy status to other drugs, medicaments and biological substances; Z88.0 Allergy status to penicillin
CPT/HCPCS: 72125; 99283; 96372; J2360; J2930; J1170

== ENCOUNTER → 2021-06-24 | Outpatient (CLI) | payer MEDICARE, OTHER | END | disposition home or self-care (01) | LOC: RADMRIMAIN 10:42 | PROVIDERS: ATTEND Family Medicine | DX: Z53.9 Procedure and treatment not carried out, unspecified reason (principal) ==

== ENCOUNTER → 2021-06-26 | Outpatient (CLI) | payer MEDICARE, OTHER ==
--- NOTE | 2021-06-26 17:40 | MR ---
EXAMINATION TYPE: MR shoulder LT wo con DATE OF EXAM: 06/26/2021 COMPARISON: None HISTORY: Left shoulder pain. TECHNIQUE: Multiplanar, multisequence imaging of the left shoulder is performed without contrast. FINDINGS: There is no acute fracture. There is edema in the humeral head laterally in the region of the greater tuberosity with some chondral cysts beneath the attachment of the supraspinatus tendon. The supraspi natus tendon is markedly thickened with diffuse abnormal signal intensity consistent with marked tend initis and intrasubstance tears. There is marked shoulder impingement secondary to marked osteophytic change of the acromioclavicular joint. There is marked subacromial and subdeltoid bursitis. There is a complex tear of the superior cartilaginous labrum. IMPRESSION: 1. Tendinosis and intrasubstance tearing of the supraspinatus tendon 2. Marked degenerative changes in the lateral humerus at the attachment of supraspinatus tendon with focal edema and subchondral cyst formation. 3. Marked shoulder impingement secondary to marked degenerative change of the acromioclavicular joint . 4. Subacromial subdeltoid bursitis. 5. Tear of the superior cartilaginous labrum.
== END | disposition home or self-care (01) ==
LOC: RADMRIMAIN 08:40
PROVIDERS: ATTEND Family Medicine
DX: M75.52 Bursitis of left shoulder (principal); S43.432A Superior glenoid labrum lesion of left shoulder, initial encounter; X58.XXXA Exposure to other specified factors, initial encounter

== ENCOUNTER → 2021-07-23 | Outpatient (CLI) | payer MEDICARE, OTHER | END | disposition home or self-care (01) | LOC: RADUSWWP 11:46 | PROVIDERS: ATTEND Family Medicine | DX: E04.1 Nontoxic single thyroid nodule (principal) | CPT/HCPCS: 76536 ==

== ENCOUNTER → 2021-12-27 | Outpatient (CLI) | payer MEDICARE, OTHER ==
--- NOTE | 2021-12-28 10:04 | CT ---
EXAMINATION TYPE: CT angio abdomen and pelvis with bilateral lower extremity runoff CT DLP: 1644.60 mGycm, Automated exposure control for dose reduction was used. DATE OF EXAM: 12/27/2021 5:01 PM COMPARISON: None CLINICAL INDICATION:Female, 61 years old with history of I73.9 PERIPHERAL VASCULAR DISEASE, UNSPECIFI ED, pain behind both knees TECHNIQUE: Multiple thin slice sub-millimeter images were obtained through the abdomen, pelvis, and l ower extremities after administration of contrast. 3-D reconstructed images and maximum intensity pr ojection images were obtained of the abdomen, pelvis, and lower extremities. CT Contrast: Contrast used:120 mL of Isovue 370 without and with IV Contrast, Oral contrast used: None FINDINGS: CTA Abdomen and pelvis: The abdominal aorta does not demonstrate aneurysmal dilatation. Atherosclero tic plaquing is identified within the abdominal aorta. The origins of the superior mesenteric artery , renal arteries, inferior mesenteric artery, and celiac axis are patent. The iliac vessels are norm al in morphology with mild atherosclerosis. CTA Lower extremities: Right: The common femoral is patent. Somewhat diminutive appearance of the right femoral artery/super ficial femoral artery with short segment of occlusion extending 2.6 cm in length and the distal aspec t with reconstitution. The popliteal artery is patent. Anterior tibial and peroneal arteries appear patent. There is a dimin utive appearance to the posterior tibial artery limits evaluation. Is thought to cross the ankle. Ant erior tibial artery is patent and crosses the ankle. Left: The common femoral and superficial femoral arteries are patent. Diminutive appearance of the forrest perficial femoral artery. The popliteal artery is patent. Anterior and posterior tibial and peroneal arteries appear patent. Anterior and posterior tibial arteries cross the ankle. Nothing to correlate with patient's posterior knee pain. LOWER CHEST: No evidence of focal consolidation, pneumothorax or pleural effusion. LIVER: Unremarkable GALLBLADDER AND BILE DUCTS: The gallbladder is surgically absent. PANCREAS: Unremarkable. SPLEEN: Unremarkable. ADRENAL GLANDS: Unremarkable. KIDNEYS AND URETERS: No evidence of hydronephrosis or renal calculus. The ureters are unremarkable. PELVIS BLADDER: Unremarkable REPRODUCTIVE: Unremarkable. ABDOMEN & PELVIS STOMACH AND BOWEL: No evidence of bowel obstruction. PERITONEUM: No evidence of pneumoperitoneum or free fluid. VASCULATURE: No evidence of aortic aneurysm. MUSCULOSKELETAL: No acute osseous abnormalities LYMPH NODES: No gross evidence for lymphadenopathy. SOFT TISSUE/ABDOMINAL WALL: Unremarkable IMPRESSION 1. Right superficial femoral artery distal short segment of occlusion with reconstitution. 2. Diminutive appearance of the right posterior tibial artery with limited evaluation however it jacobo s appear to cross the ankle. 3. No evidence of occlusion within the left lower extremity with at least two vessels are seen cross ing the left ankle. 4. No finding to correlate with patient's posterior knee pain.
== END | disposition home or self-care (01) ==
LOC: RADCTMAIN 14:47
PROVIDERS: ATTEND Family Medicine
DX: I74.3 Embolism and thrombosis of arteries of the lower extremities (principal)
CPT/HCPCS: 73706; Q9967

== ENCOUNTER 2022-10-16 12:06 | Inpatient (IN) | payer MEDICARE, OTHER ==
--- NOTE | 2022-10-16 12:42 | ED ---
General Adult HPI - General Chief complaint: Neuro Symptoms/Deficit Stated complaint: left side numbness Time Seen by Provider: 10/16/22 12:18 Source: patient, EMS, RN notes reviewed Mode of arrival: EMS Limitations: no limitations - History of Present Illness Initial comments: Patient is a pleasant 62-year-old female presenting to the emergency department with concern with left sided paresthesia. Patient last known well was 7:30 PM. Patient woke at 2 AM and had some symptoms. Symptoms have continued since that time. Patient complains of paresthesia feeling entire left side of her body. Patient denies any weakness. Patient has had somewhat similar symptoms previously associated with TIA. Patient is walking fine. No confusion. No speech comes. No visual change. Patient states occasionally she does get a mild left facial droop from previous TIAs. - Related Data Previous Rx's Medication Instructions Recorded Cyclobenzaprine [Flexeril] 5 mg PO HS PRN #10 tab 05/15/21 HYDROcodone/APAP 5-325MG [[place] 5] 1 each PO Q6HR PRN #12 tab 05/23/21 Lidocaine [Lidoderm 5% Patch] 1 patch TRANSDERM DAILY #30 patch 05/23/21 methocarbamoL [Methocarbamol] 750 mg PO QID PRN #30 tablet 05/23/21 predniSONE 50 mg PO DAILY 5 Days #5 tab 05/23/21 Allergies Allergy/AdvReac Type Severity Reaction Status Date / Time aspirin Allergy NOSE BLEEDS Verified 10/16/22 12:12 cephalexin monohydrate Allergy Swelling/RA Verified 10/16/22 12:12 [From Keflex] SH/HIVES metformin HCl Allergy Rash/Hives/ Verified 10/16/22 12:12 [From Glucophage] SWELLING Penicillins Allergy Anaphylaxis Verified 10/16/22 12:12 Review of Systems ROS Statement: Those systems with pertinent positive or pertinent negative responses have been documented in the HPI. ROS Other: All systems not noted in ROS Statement are negative. Constitutional: Denies: fever Eyes: Denies: eye pain ENT: Denies: ear pain Respiratory: Denies: cough, dyspnea Cardiovascular: Denies: chest pain Gastrointestinal: Denies: abdominal pain Musculoskeletal: Denies: back pain Neurological: Reports: as per HPI, paresthesias. Denies: headache Past Medical History Past Medical History: Cancer, Osteoarthritis (OA) Additional Past Medical History / Comment(s): back pain, thyroid CA left lobe, pinched nerve in neck History of Any Multi-Drug Resistant Organisms: None Reported Past Surgical History: Cholecystectomy, Hysterectomy Additional Past Surgical History / Comment(s): LT LEG SKIN GRAFT, PARTIAL THYROIDECTOMY left lobe, carpal tunnel, RT CATARACT, Past Anesthesia/Blood Transfusion Reactions: Postoperative Nausea & Vomiting (PONV) Past Psychological History: Depression Smoking Status: Current every day smoker Past Alcohol Use History: None Reported Past Drug Use History: None Reported - Past Family History Sister(s) Family Medical History: Cancer Additional Family Medical History / Comment(s): ONE WITH COLON CA, ONE WITH LUNG CA General Exam Limitations: no limitations General appearance: alert, in no apparent distress Head exam: Present: atraumatic Eye exam: Present: normal appearance, PERRL, EOMI ENT exam: Present: normal oropharynx Neck exam: Present: normal inspection Respiratory exam: Present: normal lung sounds bilaterally Cardiovascular Exam: Present: regular rate, normal rhythm GI/Abdominal exam: Present: soft. Absent: tenderness Extremities exam: Present: normal inspection, full ROM. Absent: tenderness Neurological exam: Present: alert, oriented X3, CN II-XII intact (Except for trace left facial droop) Expanded Neurological exam: Present: protecting the airway Patient oriented to: Present: person, place, time Speech: Present: fluid speech Cranial nerves: EOM's Intact: Normal Sensory exam: Upper Extremity Light Touch: Normal, Lower Extremity Light Touch: Normal Motor strength exam: RUE: 5, LUE: 5, RLE: 5, LLE: 4 Eye Response: (4) open spontaneously Motor Response: (6) obeys commands Verbal Response: (5) oriented Psychiatric exam: Present: normal affect, normal mood Skin exam: Present: normal color Course Vital Signs 10/16/22 10/16/22 12:09 12:49 Temperature 97.5 F L Pulse Rate 87 90 Respiratory 18 18 Rate Blood Pressure 203/80 151/88 O2 Sat by Pulse 96 97 Oximetry EKG Findings - EKG Results: EKG: interpreted by ERMD, sinus rhythm, normal axis, normal QRS, normal ST/T Medical Decision Making - Medical Decision Making Was pt. sent in by a medical professional or institution (, PA, CONTRACTS LAW PROFESSOR, urgent care, hospital, or fci...) When possible be specific @ -No Did you speak to anyone other than the patient for history (EMS, parent, family, police, friend...)? What history was obtained from this source @ -No Did you review nursing and triage notes (agree or disagree)? Why? @ -I reviewed and agree with nursing and triage notes Were old charts reviewed (outside hosp., previous admission, EMS record, old EKG, old radiological studies, urgent care reports/EKG's, fci records)? Report findings @ -No old charts were reviewed Differential Diagnosis (chest pain, altered mental status, abdominal pain women, abdominal pain men, vaginal bleeding, weakness, fever, dyspnea, syncope, heada adelaide, dizziness, GI bleed, back pain, seizure, CVA, palpatations, mental health, musculoskeletal)? @ -Differential Weakness: Hypoglycemia, shock, sepsis, hyponatremia, anemia, infection, NC, ETOH, adverse medicine reaction, overdose, stroke, this is not meant to be an all-inclusive list. EKG interpreted by me (3pts min.). @ -As above X-rays interpreted by me (1pt min.). @ -Chest x-ray shows no acute process CT interpreted by me (1pt min.). @ -CT brain with questionable subacute area of infarct left frontal. No obvious large mass or hemorrhage U/S interpreted by me (1pt. min.). @ -None done What testing was considered but not performed or refused? (CT, X-rays, U/S, labs)? Why? @ -None What meds were considered but not given or refused? Why? @ -Patient is not a candidate for TPA secondary to onset greater than 4.5 hours, therefore risk is felt to outweigh the benefit. Did you discuss the management of the patient with other professionals (professionals i.e. , PA, CONTRACTS LAW PROFESSOR, lab, RT, psych nurse, social media project manager, engineering specialist technician, teacher, event security officer, case filler)? Give summary @ -Case discussed with Dr. hinkle, who will admit covered Dr. Patterson Was smoking cessation discussed for >3mins.? @ -No Was critical care preformed (if so, how long)? @ -No Were there social determinants of health that impacted care today? How? (Homelessness, low income, unemployed, alcoholism, drug addiction, transportation, low edu. Level, literacy, decrease access to med. care, alf, rehab)? @ -No Was there de-escalation of care discussed even if they declined (Discuss DNR or withdrawal of care, Hospice)? DNR status @ -No What co-morbidities impacted this encounter? (DM, HTN, Smoking, COPD, CAD, Cancer, CVA, ARF, Chemo, Hep., AIDS, mental health diagnosis, sleep apnea, morbid obesity)? @ -None Was patient admitted / discharged? Hospital course, mention meds given and route, prescriptions, significant lab abnormalities, going to OR and other pertinent info. @ -Patient reevaluated and updated. Patient will be admitted with neurology consult. Orders written. Undiagnosed new problem with uncertain prognosis? @ -No Drug Therapy requiring intensive monitoring for toxicity (Heparin, Nitro, Insulin, Cardizem)? @ -No Were any procedures done? @ -No Diagnosis/symptom? @ -cVA Acute, or Chronic, or Acute on Chronic? @ -Acute Uncomplicated (without systemic symptoms) or Complicated (systemic symptoms)? @ -default Side effects of treatment? @ -No Exacerbation, Progression, or Severe Exacerbation? @ -No Poses a threat to life or bodily function? How? (Chest pain, USA, NC, pneumonia, PE, COPD, DKA, ARF, appy, cholecystitis, CVA, Diverticulitis, Homicidal, Suicidal, threat to staff... and all critical care pts) @ -No - Lab Data Result diagrams: 10/16/22 12:42 10/16/22 12:42 Lab Results 10/16/22 10/16/22 10/16/22 Range/Units 12:42 12:42 12:42 WBC 7.0 (3.8-10.6) k/uL RBC 4.99 (3.80-5.40) m/uL Hgb 15.3 (11.4-16.0) gm/dL Hct 45.1 (34.0-46.0) % MCV 90.2 (80.0-100.0) fL MCH 30.7 (25.0-35.0) pg MCHC 34.0 (31.0-37.0) g/dL RDW 13.1 (11.5-15.5) % Plt Count 180 (150-450) k/uL MPV 8.5 Neutrophils % 71 % Lymphocytes % 22 % Monocytes % 4 % Eosinophils % 1 % Basophils % 0 % Neutrophils # 4.9 (1.3-7.7) k/uL Lymphocytes # 1.5 (1.0-4.8) k/uL Monocytes # 0.3 (0-1.0) k/uL Eosinophils # 0.1 (0-0.7) k/uL Basophils # 0.0 (0-0.2) k/uL PT 10.0 (9.0-12.0) sec INR 0.9 (<1.2) APTT 24.7 (22.0-30.0) sec Sodium 139 (137-145) mmol/L Potassium 4.2 (3.5-5.1) mmol/L Chloride 107 (98-107) mmol/L Carbon Dioxide 23 (22-30) mmol/L Anion Gap 9 mmol/L BUN 20 H (7-17) mg/dL Creatinine 0.63 (0.52-1.04) mg/dL Est GFR (CKD-EPI)AfAm >90 (>60 ml/min/1.73 sqM) Est GFR (CKD-EPI)NonAf >90 (>60 ml/min/1.73 sqM) Glucose 140 H (74-99) mg/dL Calcium 9.2 (8.4-10.2) mg/dL Total Bilirubin 0.7 (0.2-1.3) mg/dL AST 29 (14-36) U/L ALT 27 (4-34) U/L Alkaline Phosphatase 90 (38-126) U/L Creatine Kinase 136 H (30-135) U/L Troponin I (0.000-0.034) ng/mL Total Protein 7.8 (6.3-8.2) g/dL Albumin 4.3 (3.5-5.0) g/dL 10/16/22 Range/Units 12:42 WBC (3.8-10.6) k/uL RBC (3.80-5.40) m/uL Hgb (11.4-16.0) gm/dL Hct (34.0-46.0) % MCV (80.0-100.0) fL MCH (25.0-35.0) pg MCHC (31.0-37.0) g/dL RDW (11.5-15.5) % Plt Count (150-450) k/uL MPV Neutrophils % % Lymphocytes % % Monocytes % % Eosinophils % % Basophils % % Neutrophils # (1.3-7.7) k/uL Lymphocytes # (1.0-4.8) k/uL Monocytes # (0-1.0) k/uL Eosinophils # (0-0.7) k/uL Basophils # (0-0.2) k/uL PT (9.0-12.0) sec INR (<1.2) APTT (22.0-30.0) sec Sodium (137-145) mmol/L Potassium (3.5-5.1) mmol/L Chloride (98-107) mmol/L Carbon Dioxide (22-30) mmol/L Anion Gap mmol/L BUN (7-17) mg/dL Creatinine (0.52-1.04) mg/dL Est GFR (CKD-EPI)AfAm (>60 ml/min/1.73 sqM) Est GFR (CKD-EPI)NonAf (>60 ml/min/1.73 sqM) Glucose (74-99) mg/dL Calcium (8.4-10.2) mg/dL Total Bilirubin (0.2-1.3) mg/dL AST (14-36) U/L ALT (4-34) U/L Alkaline Phosphatase (38-126) U/L Creatine Kinase (30-135) U/L Troponin I <0.012 (0.000-0.034) ng/mL Total Protein (6.3-8.2) g/dL Albumin (3.5-5.0) g/dL Disposition Clinical Impression: Cerebrovascular accident (CVA) Disposition: ADMITTED IP TO THIS HOSP Is patient prescribed a controlled substance at d/c from ED?: No Referrals: Jorge Patterson DO [Primary Care Provider] - 1-2 days Time of Disposition: 14:19
[2022-10-16 12:56] LABS: Basophils % (A) 0 %; Eosinophils # (A) 0.1 k/uL (0-0.7); Eosinophils % (A) 1 %; HCT 45.1 % (34.0-46.0); HGB 15.3 gm/dL (11.4-16.0); Lymphocytes # (A) 1.5 k/uL (1.0-4.8); Lymphocytes % (A) 22 %; MCH 30.7 pg (25.0-35.0); MCV 90.2 fL (80.0-100.0); Mean Platelet Volume 8.5; Monocytes # (A) 0.3 k/uL (0-1.0); Monocytes % (A) 4 %; Neutrophils # (A) 4.9 k/uL (1.3-7.7); Neutrophils % (A) 71 %; Platelet Count 180 k/uL (150-450); RBC 4.99 m/uL (3.80-5.40); RDW 13.1 % (11.5-15.5)
[2022-10-16 13:08] LABS: INR 0.9 (<1.2); Partial Thromboplastin Time 24.7 sec (22.0-30.0)
[2022-10-16 13:17] LABS: ALT 27 U/L (4-34); AST 29 U/L (14-36); African American GFR (CKD) >90 (>60 ml/min/1.73 sqM); Albumin 4.3 g/dL (3.5-5.0); Alkaline Phosphatase 90 U/L (38-126); Anion Gap 9 mmol/L; Blood Urea Nitrogen 20 mg/dL (7-17); Calcium 9.2 mg/dL (8.4-10.2); Carbon Dioxide 23 mmol/L (22-30); Chloride 107 mmol/L (98-107); Creatine Kinase 136 U/L (30-135); Glucose 140 mg/dL (74-99); Non-African American GFR(CKD) >90 (>60 ml/min/1.73 sqM); Potassium 4.2 mmol/L (3.5-5.1); Sodium 139 mmol/L (137-145); Total Bilirubin 0.7 mg/dL (0.2-1.3); Total Protein 7.8 g/dL (6.3-8.2)
--- NOTE | 2022-10-16 13:58 | XR ---
EXAMINATION TYPE: XR chest 2V DATE OF EXAM: 10/16/2022 1:52 PM COMPARISON: Chest radiographs from 05/07/2020 TECHNIQUE: XR chest 2V Frontal and lateral views of the chest. CLINICAL INDICATION:Female, 62 years old with history of altered mental status; FINDINGS: Lungs/Pleura: There is no evidence of pleural effusion, focal consolidation, or pneumothorax. Pulmonary vascularity: Unremarkable. Heart/mediastinum: Cardiomediastinal silhouette is unremarkable. Musculoskeletal: Multiple level degenerative disc disease changes seen throughout the spine. Cervical fusion hardware. Arthropathy of both shoulders. IMPRESSION: No acute cardiopulmonary disease/process.
--- NOTE | 2022-10-16 14:03 | CT ---
EXAMINATION TYPE: CT brain wo con CT DLP: 1100.7 mGycm, Automated exposure control for dose reduction was used. DATE OF EXAM: 10/16/2022 1:52 PM COMPARISON: Prior CT Brain from 06/08/2018. CLINICAL INDICATION:Female, 62 years old with history of Neuro deficit, acute, stroke suspected, weak ness TECHNIQUE: Brain: Multiple axial CT images of the brain were obtained without IV contrast. Coronal sagittal refo rmats reviewed. FINDINGS: Brain: Extra-axial spaces: No abnormal extra-axial fluid collections. Ventricular system: Within normal limits Cerebral parenchyma: No acute intraparenchymal hemorrhage or mass effect. There is a hypodense regio n within the white matter of the left frontal lobe (series 2031, image 33) The conklin-white junction is well differentiated. Scattered hypoattenuating areas are seen within the white matter. Cerebellum: Unremarkable. Mass effect: No evidence of midline shift. Intracranial vasculature: Atherosclerotic calcifications of the intracranial vessels. Soft tissues: Normal. Calvarium/osseous structures: No depressed skull fracture. Paranasal sinuses and mastoid air cells: Clear Visualized orbits: Right aphakia IMPRESSION: 1. Small region within the left frontal lobe white matter suspicious for acute/subacute ischemia. Thi s can be further confirmed with MRI. 2. Nonspecific white matter changes, likely secondary to chronic small vessel ischemic disease. Findings called to and discussed with Dr. Rai Back at 2:00 PM on 10/16/2022.
[2022-10-16] MEDS ORDERED: ASPIRIN 325 MG TAB PO STA (14:19)
[2022-10-16] MEDS: SODIUM CHLORIDE 0.9% 1,000 ML IV SCH (14:53)
--- NOTE | 2022-10-16 15:46 | US ---
EXAMINATION TYPE: US carotid duplex BILAT DATE OF EXAM: 10/16/2022 COMPARISON: NONE CLINICAL INDICATION: Female, 62 years old with history of Stenosis; Numbness left side TECHNIQUE: Carotid duplex ultrasound examination. Indirect Doppler criteria was utilized. FINDINGS: EXAM MEASUREMENTS: RIGHT: Peak Systolic Velocity (PSV) cm/sec ----- Right CCA: 74.2 ----- Right ICA: 103.2 ----- Right ECA: 145.7 ICA/CCA ratio: 1.4 RIGHT: End Diastole cm/sec ----- Right CCA: 14.2 ----- Right ICA: 24.1 ----- Right ECA: 17.5 LEFT: Peak Systolic Velocity (PSV) cm/sec ----- Left CCA: 74.6 ----- Left ICA: 94.3 ----- Left ECA: 110 ICA/CCA ratio: 1.3 LEFT: End Diastole cm/sec ----- Left CCA: 19.5 ----- Left ICA: 27.4 ----- Left ECA: 19.5 VERTEBRALS (direction of flow): Right Vertebral: Antegrade Left Vertebral: Antegrade Rhythm: Normal TURKISH RUBBER NOTES: Bilateral plaque visualized No significant stenosis seen IMPRESSION: Less than 50% stenosis of the bilateral carotid bifurcations. Criteria for Assigning % of Stenosis / Diameter reduction (Estimation based on the indirect measurements of the internal carotid artery velocities (ICA PSV). 1. Normal (no stenosis)=ICA PSV < 125 cm/s: ratio < 2.0: ICA EDV<40 cm/s. 2. Less than 50% stenosis=ICA PSV < 125 cm/s: ratio < 2.0: ICA EDV<40 cm/s. 3. 50 to 69% stenosis=ICA PSV of 125 to 230 cm/s: ration 2.0 ? 4.0: ICA EDV 40-100 cm/s. 4. Greater than 70% stenosis to near occlusion= ICA PSV > 230 cm/s: ratio > 4.0: ICA EDV > 100 cm/s. 5. Near occlusion= ICA PSV velocities may be low or undetectable: variable ratio and ICA EDV. 6. Total occlusion=unable to detect flow.
[2022-10-16] MEDS ORDERED: hydrALAZINE HCL 20 MG/ML 1 ML VIAL IVP PRN (15:55)
[2022-10-16] MEDS ORDERED: MELATONIN 3 MG TABLET PO PRN (15:56)
[2022-10-16] MEDS ORDERED: ACETAMINOPHEN TAB 325 MG TAB PO PRN (15:56)
[2022-10-16] MEDS ORDERED: NALOXONE 0.4 MG/ML 1 ML VIAL IV PRN (15:56)
--- NOTE | 2022-10-16 15:58 | P.HPIM ---
History of Present Illness H&P Date: 10/16/22 Chief Complaint: Paresthesia * 62-year-old lady with past medical history of thyroid no deal, biopsy done in 2020 showed benign no deal, presented to the emergency department with complaints of left-sided tingling and numbness that started earlier today * Patient woke up from sleep around 2 AM and was noted to have left-sided paresthesia. Last well-known was 7:30 PM on 10/15/22 * Patient states she has not followed up with a physician and has been having difficulty finding a PCP * Patient denied of speech change confusion or motor deficit was moving upper lobe extremities without difficulty * She does state she has history of TIA * Workup initiated in ER including a CT head which showed small area and left frontal lobe raising suspicion for acute to subacute infarct * At the time of her evaluation patient continued to complain of left-sided paresthesia * Workup included CBC which was within normal limits blood chemistry obtained showed normal sodium potassium kidney function within normal limits blood glucose 140 troponin negative REVIEW OF SYSTEMS: Left-sided paresthesia CONSTITUTIONAL: No fever, no malaise, no fatigue. HEENT: No recent visual problems or hearing problems. Denied any sore throat. CARDIOVASCULAR: No chest pain, orthopnea, PND, no palpitations, no syncope. PULMONARY: No shortness of breath, no cough, no hemoptysis. GASTROINTESTINAL: No diarrhea, no nausea, no vomiting, no abdominal pain. NEUROLOGICAL: No headaches, no weakness, left-sided numbness left upper and lower extremity HEMATOLOGICAL: Denies any bleeding or petechiae. GENITOURINARY: Denies any burning micturition, frequency, or urgency. MUSCULOSKELETAL/RHEUMATOLOGICAL: Denies any joint pain, swelling, or any muscle pain. ENDOCRINE: Denies any polyuria or polydipsia. The rest of the 14-point review of systems is negative. PHYSICAL EXAMINATION: GENERAL: The patient is alert and oriented x3, not in any acute distress. Well developed, well nourished. HEENT: Pupils are round and equally reacting to light. EOMI. No scleral icterus. No conjunctival pallor. Normocephalic, atraumatic. No pharyngeal erythema. No thyromegaly. CARDIOVASCULAR: S1 and S2 present. No murmurs, rubs, or gallops. PULMONARY: Chest is clear to auscultation, no wheezing or crackles. ABDOMEN: Soft, nontender, nondistended, normoactive bowel sounds. No palpable organomegaly. MUSCULOSKELETAL: No joint swelling or deformity. EXTREMITIES: No cyanosis, clubbing, or pedal edema. NEUROLOGICAL: Gross neurological examination did not reveal any focal deficits. SKIN: No rashes. Past Medical History Past Medical History: Cancer, Osteoarthritis (OA) Additional Past Medical History / Comment(s): back pain, thyroid CA left lobe, pinched nerve in neck History of Any Multi-Drug Resistant Organisms: None Reported Past Surgical History: Cholecystectomy, Hysterectomy Additional Past Surgical History / Comment(s): LT LEG SKIN GRAFT, PARTIAL THY ROIDECTOMY left lobe, carpal tunnel, RT CATARACT, Past Anesthesia/Blood Transfusion Reactions: Postoperative Nausea & Vomiting (PONV) Past Psychological History: Depression Smoking Status: Current every day smoker Past Alcohol Use History: None Reported Past Drug Use History: None Reported - Past Family History Sister(s) Family Medical History: Cancer Additional Family Medical History / Comment(s): ONE WITH COLON CA, ONE WITH LUNG CA Medications and Allergies Home Medications Medication Instructions Recorded Confirmed Type Meloxicam [Mobic] 15 mg PO DAILY 10/16/22 10/16/22 History Naproxen Sodium [Aleve] 220 - 440 mg PO BID PRN 10/16/22 10/16/22 History Allergies Allergy/AdvReac Type Severity Reaction Status Date / Time aspirin Allergy NOSE BLEEDS Verified 10/16/22 14:55 cephalexin monohydrate Allergy Swelling/RA Verified 10/16/22 14:55 [From Keflex] SH/HIVES metformin HCl Allergy Rash/Hives/ Verified 10/16/22 14:55 [From Glucophage] SWELLING Penicillins Allergy Anaphylaxis Verified 10/16/22 14:55 Physical Exam Vitals: Vital Signs Temp Pulse Resp BP Pulse Ox 10/16/22 14:58 95 18 173/88 94 L 10/16/22 12:49 90 18 151/88 97 10/16/22 12:09 97.5 F L 87 18 203/80 96 Intake and Output 10/16/22 10/16/22 10/16/22 06:59 14:59 22:59 Other: Weight 90.718 kg Results CBC & Chem 7: 10/16/22 12:42 10/16/22 12:42 Labs: Abnormal Lab Results - Last 24 Hours (Table) 10/16/22 Range/Units 12:42 BUN 20 H (7-17) mg/dL Glucose 140 H (74-99) mg/dL Creatine Kinase 136 H (30-135) U/L Thrombosis Risk Factor Assmnt - DVT/VTE Prophylaxis DVT/VTE Prophylaxis: Pharmacologic Prophylaxis ordered, Mechanical Prophylaxis ordered Assessment and Plan Assessment: Assessment and plan * Left upper and lower extremity paresthesia rule out CVA * History of thyroid nodule * Hypertension * History of TIA * Morbid obesity * Consultation to be obtained from neurology, CT head reviewed, carotid ultrasound and MRI brain ordered * Continue patient on every 4 hours neuro checks, continue aspirin and Lipitor * Echocardiogram ordered follow-up on HbA1c and TSH levels * CODE STATUS is full code * Allow permissive hypertension * Lovenox for DVT prophylaxis
[2022-10-16] MEDS: ATORVASTATIN 40 MG TAB PO SCH (21:44)
[2022-10-17] MEDS: SODIUM CHLORIDE 0.9% 1,000 ML IV SCH ×2 (06:29→11:39)
[2022-10-17 08:11] LABS: Basophils % (A) 0 %; Eosinophils # (A) 0.1 k/uL (0-0.7); Eosinophils % (A) 1 %; HCT 41.5 % (34.0-46.0); Lymphocytes # (A) 2.2 k/uL (1.0-4.8); Lymphocytes % (A) 31 %; MCH 30.4 pg (25.0-35.0); MCHC 33.6 g/dL (31.0-37.0); MCV 90.5 fL (80.0-100.0); Mean Platelet Volume 8.8; Monocytes # (A) 0.4 k/uL (0-1.0); Monocytes % (A) 6 %; Neutrophils # (A) 4.4 k/uL (1.3-7.7); Neutrophils % (A) 61 %; Platelet Count 158 k/uL (150-450); RBC 4.59 m/uL (3.80-5.40); WBC 7.1 k/uL (3.8-10.6)
[2022-10-17 08:30] LABS: African American GFR (CKD) >90 (>60 ml/min/1.73 sqM); Blood Urea Nitrogen 15 mg/dL (7-17); Calcium 8.5 mg/dL (8.4-10.2); Carbon Dioxide 28 mmol/L (22-30); Glucose 100 mg/dL (74-99); Non-African American GFR(CKD) >90 (>60 ml/min/1.73 sqM)
[2022-10-17 08:52] LABS: Anion Gap 2 mmol/L; Chloride 106 mmol/L (98-107); Potassium 3.9 mmol/L (3.5-5.1); Sodium 136 mmol/L (137-145)
[2022-10-17] MEDS: ASPIRIN 325 MG TAB PO SCH (11:19)
[2022-10-17] MEDS: ENOXAPARIN 40 MG/0.4 ML SYRINGE SQ SCH ×2 (11:19→11:23)
[2022-10-17] MEDS: HYDROcodone/APAP 5-325MG 1 EACH TAB PO PRN (13:07)
--- NOTE | 2022-10-17 13:34 | P.PN ---
Subjective Progress Note Date: 10/17/22 * 62-year-old lady with past medical history of thyroid no deal, biopsy done in 2020 showed benign no deal, presented to the emergency department with complaints of left-sided tingling and numbness that started earlier today * Patient woke up from sleep around 2 AM and was noted to have left-sided paresthesia. Last well-known was 7:30 PM on 10/15/22 * Patient states she has not followed up with a physician and has been having difficulty finding a PCP * Patient denied of speech change confusion or motor deficit was moving upper lobe extremities without difficulty * She does state she has history of TIA * Workup initiated in ER including a CT head which showed small area and left frontal lobe raising suspicion for acute to subacute infarct * At the time of her evaluation patient continued to complain of left-sided paresthesia * Workup included CBC which was within normal limits blood chemistry obtained showed normal sodium potassium kidney function within normal limits blood glucose 140 troponin negative * 10/17/2022 : Patient seen and evaluated bedside. At this time patient is waiting for MRI to be done. HbA1c discussed with patient she doesn't want to start any medication and would like to lose weight. Will continue with permissive hypertension until MRI results are completed Objective - Vital Signs Vital signs: Vital Signs Temp 98.3 F 10/17/22 12:00 Pulse 73 10/17/22 12:00 Resp 15 10/17/22 12:00 BP 176/77 10/17/22 12:00 Pulse Ox 96 10/17/22 12:00 FiO2 Intake & Output 10/16/22 10/17/22 10/17/22 18:59 06:59 18:59 Weight 90.718 kg - Exam PHYSICAL EXAMINATION: GENERAL: The patient is alert and oriented x3, not in any acute distress. Well developed, well nourished. Obese HEENT: Pupils are round and equally reacting to light. EOMI. No scleral icterus. No conjunctival pallor. Normocephalic, atraumatic. No pharyngeal erythema. No thyromegaly. CARDIOVASCULAR: S1 and S2 present. No murmurs, rubs, or gallops. PULMONARY: Chest is clear to auscultation, no wheezing or crackles. ABDOMEN: Soft, nontender, nondistended, normoactive bowel sounds. No palpable organomegaly. MUSCULOSKELETAL: No joint swelling or deformity. EXTREMITIES: No cyanosis, clubbing, or pedal edema. NEUROLOGICAL: Gross neurological examination did not reveal any focal deficits. SKIN: No rashes. - Labs CBC & Chem 7: 10/17/22 07:41 10/17/22 07:41 Labs: Abnormal Lab Results - Last 24 Hours (Table) 10/16/22 10/17/22 Range/Units 12:42 07:41 Sodium 136 L (137-145) mmol/L Glucose 100 H (74-99) mg/dL Hemoglobin A1c 7.0 H (<=6.0) % Assessment and Plan Assessment: Assessment and plan * Left upper and lower extremity paresthesia rule out CVA * History of thyroid nodule * Hypertension * History of TIA * Morbid obesity * Diabetes mellitus type 2 * Consultation to be obtained from neurology, CT head reviewed, carotid ultrasound and MRI brain ordered pending * Continue patient on every 4 hours neuro checks, continue aspirin and Lipitor * Echocardiogram ordered, pending * In regards to diabetes mellitus type 2 HbA1c 7, patient refusing to start any medications for diabetes. She would like to lose weight and follow-up * CODE STATUS is full code * Allow permissive hypertension, when necessary IV hydralazine ordered with diabetes * Lovenox for DVT prophylaxis * counseled not to leave AGAINST MEDICAL ADVICE
--- NOTE | 2022-10-17 14:34 | P.CNNES ---
History of Present Illness Consult date: 10/17/22 Requesting physician: Rai Back Reason for Consult: CVA History of Present Illness: Patient is a 62-year-old left-handed female came to the hospital by ambulance yesterday at 12:06 PM for new onset numbness of left side of the body. Patient states that she went to sleep the night prior at around 7-8 PM and was feeling fine. She woke up at 2 in the morning and felt slight numbness of the left side. She went back to sleep and when she woke up at 4 AM, the whole left side of the body was numb including face arm and leg. She also felt slight weakness on the left side. Patient thought that it was her usual TIA would go away, but as the symptoms persisted, she came to the ER. Patient denied any visual problems, slurred speech. As per EMS flow sheet, when they arrived patient was complaining of numbness of left side that started at 2 AM. Patient has a history of TIAs and believed she was having a TIA and decided to go back to bed. Patient also had history of a pinched nerve on the left side of her groin which will sometimes cause numbness in her left lower extremity. Patient was alert and oriented 4 with GCS of 15. Patient has equal fine arts packer strength, negative arm drift and equal smile. Patient's blood pressure was 197/112, pulse rate 106, respiration 18, saturation 96%, blood sugar 124. Blood test shows normal CBC, PT/PTT, normal CMP. Troponin negative. CT head revealed small region within the left frontal lobe white matter suspicious for acute/subacute ischemia. This can be further confirmed with MRI. I personally reviewed CT head, agree with the findings. However this is not significant, as symptoms aren't on ipsilateral side. EKG shows sinus rhythm. Chest x-ray with no acute cardiopulmonary disease/process. Patient has smoked 1 pack per day from age 16, still smokes. For a few years she was smoking up to 2 packs per day. Patient denies any alcoholism. Denies any drug or marijuana use. She does have hypertension but denies diabetes. She has hypothyroidism. Patient claims that she has history of TIA twice in the past, but which was several years ago. Patient does not take any antiplatelet medication at home. Review of Systems Constitutional: Denies chills, Denies fever Eyes: denies blurred vision, denies diplopia, denies pain Ears: deny: decreased hearing, ear discharge Ears, nose, mouth and throat: Reports headache (Slight yesterday, gone now), Denies sore throat Cardiovascular: Denies chest pain, Denies shortness of breath Respiratory: Denies cough, Denies excessive sputum Gastrointestinal: Reports nausea, Denies abdominal pain, Denies diarrhea, Denies vomiting Musculoskeletal: Reports low back pain, Reports neck pain, Denies myalgias Integumentary: Denies pruritus, Denies rash Neurological: Reports as per HPI Psychiatric: Denies anxiety, Denies depression Endocrine: Reports fatigue, Denies weight change Past Medical History Past Medical History: Cancer, Osteoarthritis (OA) Additional Past Medical History / Comment(s): back pain, thyroid CA left lobe, pinched nerve in neck History of Any Multi-Drug Resistant Organisms: None Reported Past Surgical History: Cholecystectomy, Hysterectomy Additional Past Surgical History / Comment(s): LT LEG SKIN GRAFT, PARTIAL THYROIDECTOMY left lobe, carpal tunnel, RT CATARACT, Past Anesthesia/Blood Transfusion Reactions: Postoperative Nausea & Vomiting (PONV) Past Psychological History: Depression Smoking Status: Current every day smoker Past Alcohol Use History: None Reported Past Drug Use History: None Reported - Past Family History Sister(s) Family Medical History: Cancer Additional Family Medical History / Comment(s): ONE WITH COLON CA, ONE WITH LUNG CA Medications and Allergies Home Medications Medication Instructions Recorded Confirmed Type Meloxicam [Mobic] 15 mg PO DAILY 10/16/22 10/16/22 History Naproxen Sodium [Aleve] 220 - 440 mg PO BID PRN 10/16/22 10/16/22 History Allergies Allergy/AdvReac Type Severity Reaction Status Date / Time aspirin Allergy NOSE BLEEDS Verified 10/16/22 14:55 cephalexin monohydrate Allergy Swelling/RA Verified 10/16/22 14:55 [From Keflex] SH/HIVES metformin HCl Allergy Rash/Hives/ Verified 10/16/22 14:55 [From Glucophage] SWELLING Penicillins Allergy Anaphylaxis Verified 10/16/22 14:55 Physical Examination - Vital Signs Vital Signs: Vital Signs Temp Pulse Resp BP Pulse Ox 10/17/22 08:00 98.3 F 67 16 147/63 94 L 10/16/22 20:00 98.2 F 72 143/82 96 10/16/22 16:10 80 18 157/81 97 10/16/22 14:58 95 18 173/88 94 L 10/16/22 12:49 90 18 151/88 97 10/16/22 12:09 97.5 F L 87 18 203/80 96 Patient is an elderly female, in no acute distress. Patient is alert awake oriented to time place and person. Speech and language functions are normal. Patient can name and repeat very well. No aphasia or dysarthria. Attention, concentration and fund of knowledge is adequate. On cranial nerve examination, pupils are equal, round and reacting to light, visual garcia are full on confrontation, with no neglect on double simultaneous stimulation. Extraocular muscles are intact with no nystagmus. Patient has slight flattening of the right nasolabial fold. Her tongue protrudes to the midline. Palatal elevation and sensation normal, hearing and shoulder shrug normal, facial sensation decreased on the left cheek. On muscle strength testing, there is left upward drift, with flexion of the elbow. The strength is normal in arms and legs distally and proximally. Deep tendon reflexes are symmetric 1+ and plantars downgoing. Sensory to touch is decreased in the entire left side of the body including face arm and leg. Cerebellar function showed mild ataxia for [id number] testing with the left hand, but not the right. No ataxia for [id number] testing on either side. Tone and bulk of muscles normal. Gait deferred.. On general examination, there is no carotid bruit or murmur, S1-S2 audible. Chest is clear on consultation. Abdomen is soft nontender. No organomegaly, bowel sounds present. Peripheral pulses are present. No edema. Results - Laboratory Findings CBC and BMP: 10/17/22 07:41 10/17/22 07:41 Abnormal Lab Findings: Abnormal Labs 10/16/22 10/16/22 10/17/22 12:42 12:42 07:41 Sodium 136 L BUN 20 H Glucose 140 H 100 H Hemoglobin A1c 7.0 H Creatine Kinase 136 H Assessment and Plan Assessment: * Probable acute ischemic stroke manifesting with numbness of left side of the body. Patient does have a subtle weakness on the left as well. Suspect lacunar stroke, with localization to the thalamus. * Hypertension * Hyperlipidemia * Diabetes * Hypothyroidism * Tobacco use * Previous history of TIA 2, "years ago" Plan: * Agree with starting aspirin 325 mg daily. Patient was not taking any an tiplatelet medication at home. * MRI of the brain without contrast, evaluate for acute CVA * 2-D echo with bubble study to rule out PFO * Carotid Doppler, revealed less than 50% stenosis of bilateral ICA. Antegrade flow in both vertebral arteries. * Fasting a.m. lipid panel * Hemoglobin A1c 7.0, suggestive of type 2 diabetes. Patient states that her diabetes is related to hypothyroidism, does not believe that she has diabetes. We will defer to internal medicine. * Permissive hypertension for next 24-48 hours * Close neuro checks. * Telemetry monitoring rule out any arrhythmia * Recommend complete tobacco cessation * PT OT, speech therapy. * DVT prophylaxis: Heparin 5000 units subcu every 8 hours * Neurology will continue to follow. Thank you for the consult.
[2022-10-17 16:55] LABS: Chol/HDL Ratio 7.68 Ratio; LDL Cholesterol,Calculated 165.7 mg/dL (0.0-131.0)
--- NOTE | 2022-10-17 17:34 | MR ---
EXAMINATION TYPE: MR brain wo/w con DATE OF EXAM: 10/17/2022 COMPARISON: CT 10/16/2022 and prior MRI 06/29/2018 HISTORY: 62-year-old female with neurologic deficit, stroke suspected, Evaluate for CVA TECHNIQUE: Multiplanar, multisequence images of the brain and brainstem were acquired before and aft er administration of 9.5 mL IV Gadavist. Diffusion weighted imaging is performed. FINDINGS: There is a 6 mm focus of restricted diffusion along the right dorsal duglas that shows corresponding br ight T2/FLAIR weighted signal but no associated enhancement. No other abnormal restricted diffusion is seen. No mass, mass effect, midline shift, herniation, effa cement of basal cisterns, or extra-axial fluid collection. The ventricles and sulci are age-appropriate. Major intracranial flow voids are intact. T2/FLAIR weighted sequences show moderate patchy and scattered bright white matter change in both cer ebral hemispheres located within the periventricular and deep white matter regions. A few scattered f oci are present in the subcortical regions as well as well as the bilateral paramedian duglas. Midline structures demonstrate normal morphology. The craniocervical junction is normal. Post contrast images demonstrate no evidence of pathologic enhancement. Dural venous sinuses are pat ent. Moderate mucosal thickening ethmoid air cells. Leftward nasal septal deviation. Globes are intact. Mi ld mucosal thickening left maxillary sinus. IMPRESSION: 1. A 6 mm focus of acute infarct within the right dorsal duglas greater than 6 hours in duration. No ma ss effect or midline shift. 2. Background moderate burden of chronic small vessel ischemic disease. 3. Moderate chronic ethmoid sinus disease.
[2022-10-18] MEDS: HYDROcodone/APAP 5-325MG 1 EACH TAB PO PRN (00:12)
[2022-10-18] MEDS: ATORVASTATIN 40 MG TAB PO SCH (00:12)
[2022-10-18] MEDS: SODIUM CHLORIDE 0.9% 1,000 ML IV SCH ×4 (00:13→23:38)
[2022-10-18] MEDS: ASPIRIN 325 MG TAB PO SCH (09:25)
[2022-10-18] MEDS: amLODIPine 5 MG TAB PO SCH (09:25)
[2022-10-18] MEDS: ENOXAPARIN 40 MG/0.4 ML SYRINGE SQ SCH ×2 (09:25→09:27)
[2022-10-18 09:33] LABS: African American GFR (CKD) >90 (>60 ml/min/1.73 sqM); Anion Gap 3 mmol/L; Blood Urea Nitrogen 18 mg/dL (7-17); Calcium 8.5 mg/dL (8.4-10.2); Carbon Dioxide 30 mmol/L (22-30); Chloride 105 mmol/L (98-107); Glucose 114 mg/dL (74-99); Non-African American GFR(CKD) >90 (>60 ml/min/1.73 sqM); Potassium 4.1 mmol/L (3.5-5.1); Sodium 138 mmol/L (137-145)
--- NOTE | 2022-10-18 12:27 | CA ---
Transthoracic Echo Report Name: Xiao Sorto Age: 62 Gender: F : 1960 Exam Date: 10/18/2022 07:35 Exam Location: [facility] Ht (in): 64 Wt (lb): 200 Ordering Physician: Rai Back DO Attending/Referring Phys: Ingredient Scaler Helper Shemar Novoa Procedure CPT: Indications: Thrombus Cardiac Hx: Technical Quality: Fair Contrast 1: Total Dose (mL): Contrast 2: Total Dose (mL): MEASUREMENTS (Male / Female) Normal Values 2D ECHO LV Diastolic Diameter PLAX 4.4 cm 4.2 - 5.9 / 3.9 - 5.3 cm LV Systolic Diameter PLAX 2.8 cm IVS Diastolic Thickness 1.0 cm 0.6 - 1.0 / 0.6 - 0.9 cm LVPW Diastolic Thickness 1.2 cm 0.6 - 1.0 / 0.6 - 0.9 cm LV Relative Wall Thickness 0.5 RV Internal Dim ED PLAX 2.6 cm LVOT Diameter 1.9 cm Aortic Root Diameter 2.9 cm LA Systolic Diameter LX 2.5 cm 3.0 - 4.0 / 2.7 - 3.8 cm LV Diastolic Volume MOD BP 48.2 cm??? 67 - 155 / 56 - 104 cm??? LV Systolic Volume MOD BP 20.8 cm??? 22 - 58 / 19 - 49 cm??? LV Ejection Fraction MOD BP 56.9 % >= 55 % LV Cardiac Index MOD BP 970.1 cm???/min???m??? LV Diastolic Volume MOD 4C 55.2 cm??? LV Systolic Volume MOD 4C 19.8 cm??? LV Ejection Fraction MOD 4C 64.2 % LV Cardiac Index MOD 4C 1255.5 cm???/min???m??? LV Diastolic Length 4C 7.0 cm LV Systolic Length 4C 5.9 cm LV Diastolic Volume MOD 2C 36.8 cm??? LV Systolic Volume MOD 2C 20.5 cm??? LV Ejection Fraction MOD 2C 44.4 % LV Cardiac Index MOD 2C 578.7 cm???/min???m??? LV Diastolic Length 2C 6.1 cm LV Systolic Length 2C 5.4 cm LA Volume 39.6 cm??? 18 - 58 / 22 - 52 cm??? DOPPLER AV Peak Velocity 136.0 cm/s AV Peak Gradient 7.4 mmHg LVOT Peak Velocity 83.9 cm/s LVOT Peak Gradient 2.8 mmHg AV Area Cont Eq pk 1.8 cm??? MV Peak Velocity 109.5 cm/s MV Peak Gradient 4.8 mmHg MV Mean Velocity 59.9 cm/s MV Mean Gradient 1.7 mmHg MV Velocity Time Integral 43.7 cm MR Peak Velocity 337.9 cm/s MR Peak Gradient 45.7 mmHg Mitral E Point Velocity 97.2 cm/s Mitral A Point Velocity 91.2 cm/s Mitral E to A Ratio 1.1 MV Deceleration Time 281.8 ms MV E' Velocity 7.1 cm/s Mitral E to MV E' Ratio 13.8 TR Peak Velocity 166.4 cm/s TR Peak Gradient 11.1 mmHg Right Ventricular Systolic Press 16.1 mmHg PV Peak Velocity 96.5 cm/s PV Peak Gradient 3.7 mmHg FINDINGS Left Ventricle Normal LV size and wall thickness. Left ventricular ejection fraction is estimated at 50-55 %. Right Ventricle Normal right ventricular size. Right Atrium Normal right atrial size. Left Atrium Normal left atrial size. LA volume index= 20ml/m2 Mitral Valve Structurally normal mitral valve. Trace MR. Aortic Valve Trileaflet aortic valve. No aortic valve stenosis or regurgitation. Tricuspid Valve Structurally normal tricuspid valve. No tricuspid regurgitation. Pulmonic Valve Pulmonic valve not well visualized. No pulmonic regurgitation. Pericardium Normal pericardium. Aorta Normal size aortic root. CONCLUSIONS Normal LV systolic function and size No obvious mass or thrombus Previewed by: Dr. Deyvi Centeon MD (Electronically Signed) Final Date: 18 October 2022 12:26
--- NOTE | 2022-10-18 14:15 | P.PN ---
Subjective Progress Note Date: 10/18/22 * 62-year-old lady with past medical history of thyroid no deal, biopsy done in 2020 showed benign no deal, presented to the emergency department with complaints of left-sided tingling and numbness that started earlier today * Patient woke up from sleep around 2 AM and was noted to have left-sided paresthesia. Last well-known was 7:30 PM on 10/15/22 * Patient states she has not followed up with a physician and has been having difficulty finding a PCP * Patient denied of speech change confusion or motor deficit was moving upper lobe extremities without difficulty * She does state she has history of TIA * Workup initiated in ER including a CT head which showed small area and left frontal lobe raising suspicion for acute to subacute infarct * At the time of her evaluation patient continued to complain of left-sided paresthesia * Workup included CBC which was within normal limits blood chemistry obtained showed normal sodium potassium kidney function within normal limits blood glucose 140 troponin negative * 10/17/2022 : Patient seen and evaluated bedside. At this time patient is waiting for MRI to be done. HbA1c discussed with patient she doesn't want to start any medication and would like to lose weight. Will continue with permissive hypertension until MRI results are completed * 10/18/2022 : Patient seen and evaluated bedside. Patient has significant compliance with medications, MRI brain results discussed with patient she has right duglas stroke contemplating to left-sided paresthesias. Discussed lifestyle modification compliance with medication, noted to have hyperlipidemia. Started on amlodipine for hypertension. Patient was noted to have elevated HbA1c however she is refusing any treatment for that Objective - Vital Signs Vital signs: Vital Signs Temp 97.9 F 10/18/22 04:00 Pulse 63 10/18/22 12:00 Resp 16 10/18/22 12:00 BP 115/75 10/18/22 12:00 Pulse Ox 97 10/18/22 12:00 FiO2 21 10/18/22 09:48 Intake & Output 10/17/22 10/18/22 10/18/22 18:59 06:59 18:59 Weight 90.718 kg Other: # Voids 1 - Exam PHYSICAL EXAMINATION: GENERAL: The patient is alert and oriented x3, not in any acute distress. Well developed, well nourished. Obese HEENT: Pupils are round and equally reacting to light. EOMI. No scleral icterus. No conjunctival pallor. Normocephalic, atraumatic. No pharyngeal erythema. No thyromegaly. CARDIOVASCULAR: S1 and S2 present. No murmurs, rubs, or gallops. PULMONARY: Chest is clear to auscultation, no wheezing or crackles. ABDOMEN: Soft, nontender, nondistended, normoactive bowel sounds. No palpable organomegaly. MUSCULOSKELETAL: No joint swelling or deformity. EXTREMITIES: No cyanosis, clubbing, or pedal edema. NEUROLOGICAL: Gross neurological examination did not reveal any focal deficits. SKIN: No rashes. - Labs CBC & Chem 7: 10/17/22 07:41 10/18/22 09:06 Labs: Abnormal Lab Results - Last 24 Hours (Table) 10/17/22 10/18/22 Range/Units 07:41 09:06 BUN 18 H (7-17) mg/dL Glucose 114 H (74-99) mg/dL Triglycerides 224.00 H (0.00-149.00) mg/dL Cholesterol 242.00 H (0.00-200.00) mg/dL LDL Cholesterol, Calc 165.7 H (0.0-131.0) mg/dL VLDL Cholesterol, Calc 44.80 H (5.00-40.00) mg/dL HDL Cholesterol 31.50 L (40.00-60.00) mg/dL Assessment and Plan Assessment: Assessment and plan * Acute CVA involving the right duglas with left-sided paresthesia * History of thyroid nodule * Hypertension * History of TIA * Morbid obesity * Diabetes mellitus type 2 * Consultation to be obtained from neurology, CT head reviewed, carotid ultrasound and MRI brain ordered shows right duglas acute infarct * Continue patient on every 4 hours neuro checks, continue aspirin and Lipitor * Echocardiogram shows preserved ejection fraction, no intracardiac thrombus noted * In regards to diabetes mellitus type 2 HbA1c 7, patient refusing to start any medications for diabetes. She would like to lose weight and follow-up * In regards to hypertension, started on amlodipine * Lovenox for DVT prophylaxis * counseled not to leave AGAINST MEDICAL ADVICE
[2022-10-18] MEDS: CLOPIDOGREL 75 MG TAB PO SCH (20:32)
[2022-10-18] MEDS: FAMOTIDINE 20 MG TAB PO SCH (20:32)
[2022-10-18] MEDS ORDERED: ATORVASTATIN 80 MG TAB PO SCH (21:00)
[2022-10-19] MEDS: FAMOTIDINE 20 MG TAB PO SCH (09:32)
[2022-10-19] MEDS: ENOXAPARIN 40 MG/0.4 ML SYRINGE SQ SCH (09:32)
[2022-10-19] MEDS: amLODIPine 5 MG TAB PO SCH (09:32)
[2022-10-19] MEDS: CLOPIDOGREL 75 MG TAB PO SCH (09:32)
--- NOTE | 2022-10-19 11:06 | P.PN ---
Subjective Progress Note Date: 10/18/22 Patient was seen for a follow-up. Patient feels that she is better. She is able to feed herself with her left hand. Patient is left-hand dominant. Denies any new symptoms. Denies slurred speech. Patient states her walking is slightly uneasy, but able to walk. No new symptoms. Objective - Vital Signs Vital signs: Vital Signs Temp 97.9 F 10/18/22 04:00 Pulse 69 10/18/22 16:00 Resp 16 10/18/22 16:00 BP 125/67 10/18/22 16:00 Pulse Ox 93 L 10/18/22 16:00 FiO2 21 10/18/22 09:48 Intake & Output 10/18/22 10/18/22 10/19/22 06:59 18:59 06:59 Intake Total 1090 Balance 1090 Weight 90.718 kg Intake: Intake, IV Titration 250 Amount Sodium Chloride 0.9% 1, 250 000 ml @ 100 mls/hr IV . Q10H ANJANA Rx#:[id number] Oral 840 Other: # Voids 1 - Exam Patient's mental status, speech and language functions are normal. Cranial nerves are normal. Visual garcia are full, face is symmetric. Sensation is decreased in the left facial region, as compared to the right. On muscle strength testing, there is left upward drift with left elbow flexion. Otherwise the strength is completely normal in the arms and legs. Sensory to touch is decreased in the left side of the body. Cerebellar functions revealed ataxia for [id number] testing on the left. No ataxia in the lower extremities. - Labs CBC & Chem 7: 10/17/22 07:41 10/18/22 09:06 Labs: Abnormal Lab Results - Last 24 Hours (Table) 10/18/22 Range/Units 09:06 BUN 18 H (7-17) mg/dL Glucose 114 H (74-99) mg/dL Assessment and Plan Assessment: * Acute ischemic stroke involving dorsal aspect of the right pontine region. Likely from small vessel disease. * Hypertension * Hyperlipidemia * Diabetes * Hypothyroidism * Tobacco use * Previous history of TIA 2, "years ago" Plan: * Patient will be placed on dual antiplatelet medication including aspirin 81 mg and Plavix 75 mg for 30 days. Thereafter stop Plavix and continue aspirin indefinitely. Patient was not taking any antiplatelet medication prior to arrival. * Pepcid 20 mg twice a day for gastric ulcer prophylaxis. * MRI of the brain confirmed acute ischemic stroke 6 mm, within the right dorsal duglas. No mass effect. Background moderate burden of chronic small vessel ischemic disease. Moderate chronic ethmoid sinus disease. I personally reviewed MRI agree with the findings. * 2-D echo revealed normal left ventricle size and systolic function. EF is 50- 55%. Normal left atrial size. No obvious mass or thrombus. * Carotid Doppler, revealed less than 50% stenosis of bilateral ICA. Antegrade flow in both vertebral arteries. * Fasting a.m. lipid panel with cholesterol 242, LDL 165, HDL 31 and triglycerides 224. Patient to be started on high intensity statins with Lipitor 80 mg daily. * Hemoglobin A1c 7.0, suggestive of type 2 diabetes. Patient states that her diabetes is related to hypothyroidism, does not believe that she has diabetes. We will defer to internal medicine. * Optimize control of blood pressure to normotensive level. * Close neuro checks. * Telemetry monitoring rule out any arrhythmia * Recommend complete tobacco cessation * PT OT, speech therapy. * DVT prophylaxis: Lovenox 40 mg subcu daily. * Recommend follow-up with neurologist outpatient. * Observe overnight. If remains stable, then we will be the clear for discharge.
[2022-10-19 11:16] VITALS: RESP 16
--- NOTE | 2022-10-19 11:53 | P.DS ---
Providers Date of admission: 10/16/22 14:19 Expected date of discharge: 10/19/22 Attending physician: Bernie Gregory MD Consults: 10/16/22 14:20 Consult Physician Urgent Consulting Provider: Supriya Schumacher Consult Reason/Comments: cva Do you want consulting provider notified?: Yes Primary care physician: [facility] Course: 62-year-old lady with past medical history of thyroid no deal, biopsy done in 2020 showed benign no deal, presented to the emergency department with complaints of left-sided tingling and numbness that started earlier today * Patient woke up from sleep around 2 AM and was noted to have left-sided paresthesia. Last well-known was 7:30 PM on 10/15/22 * Patient states she has not followed up with a physician and has been having difficulty finding a PCP * Patient denied of speech change confusion or motor deficit was moving upper lobe extremities without difficulty * She does state she has history of TIA * Workup initiated in ER including a CT head which showed small area and left frontal lobe raising suspicion for acute to subacute infarct * At the time of her evaluation patient continued to complain of left-sided paresthesia * Workup included CBC which was within normal limits blood chemistry obtained showed normal sodium potassium kidney function within normal limits blood glucose 140 troponin negative * 10/17/2022 : Patient seen and evaluated bedside. At this time patient is waiting for MRI to be done. HbA1c discussed with patient she doesn't want to start any medication and would like to lose weight. Will continue with permissive hypertension until MRI results are completed * 10/18/2022 : Patient seen and evaluated bedside. Patient has significant compliance with medications, MRI brain results discussed with patient she has right duglas stroke contemplating to left-sided paresthesias. Discussed lifestyle modification compliance with medication, noted to have hyperlipidemia. Started on amlodipine for hypertension. Patient was noted to have elevated HbA1c however she is refusing any treatment for that. * 10/19/2022: Patient seen by and evaluated at bedside. Patient requesting discharge. Counseled regarding medication compliance. Prescription provided. Patient does not want any scripts management for diabetes. Recommended to follow-up with PCP. Referral placed for neurology outpatient PHYSICAL EXAMINATION: GENERAL: The patient is alert and oriented x3, not in any acute distress. Well developed, well nourished. Obese HEENT: Pupils are round and equally reacting to light. EOMI. No scleral icterus. No conjunctival pallor. Normocephalic, atraumatic. No pharyngeal erythema. No thyromegaly. CARDIOVASCULAR: S1 and S2 present. No murmurs, rubs, or gallops. PULMONARY: Chest is clear to auscultation, no wheezing or crackles. ABDOMEN: Soft, nontender, nondistended, normoactive bowel sounds. No palpable organomegaly. MUSCULOSKELETAL: No joint swelling or deformity. EXTREMITIES: No cyanosis, clubbing, or pedal edema. NEUROLOGICAL: Gross neurological examination did not reveal any focal deficits. SKIN: No rashes. Assessment and plan * Acute CVA involving the right duglas with left-sided paresthesia * History of thyroid nodule * Hypertension * History of TIA * Morbid obesity * Diabetes mellitus type 2 * Consultation to be obtained from neurology, CT head reviewed, carotid ultrasound and MRI brain ordered shows right duglas acute infarct * continue aspirin and Lipitor. Started on Plavix. Continue aspirin and Plavix for 30 days followed by aspirin only * Echocardiogram shows preserved ejection fraction, no intracardiac thrombus noted * In regards to diabetes mellitus type 2 HbA1c 7, patient refusing to start any medications for diabetes. She would like to lose weight and follow-up * In regards to hypertension, started on amlodipine Patient Condition at Discharge: Fair Plan - Discharge Summary Discharge Rx Participant: No New Discharge Prescriptions: New Aspirin 81 mg PO DAILY 30 Days #30 tab Atorvastatin [Lipitor] 80 mg PO HS 30 Days #30 tab amLODIPine [Norvasc] 5 mg PO DAILY 30 Days #30 tab Clopidogrel [Plavix] 75 mg PO DAILY 30 Days #30 tab Continue Naproxen Sodium [Aleve] 220 - 440 mg PO BID PRN PRN Reason: Pain Discontinued Meloxicam [Mobic] 15 mg PO DAILY Discharge Medication List Naproxen Sodium [Aleve] 220 - 440 mg PO BID PRN 10/16/22 [History] Aspirin 81 mg PO DAILY 30 Days #30 tab 10/19/22 [Rx] Atorvastatin [Lipitor] 80 mg PO HS 30 Days #30 tab 10/19/22 [Rx] Clopidogrel [Plavix] 75 mg PO DAILY 30 Days #30 tab 10/19/22 [Rx] amLODIPine [Norvasc] 5 mg PO DAILY 30 Days #30 tab 10/19/22 [Rx] Follow up Appointment(s)/Referral(s): Jorge Patterson DO [Primary Care Provider] - 1-2 days Jarrett Peters MD [Medical Doctor] - 2 Weeks Patient Instructions/Handouts: Ischemic Stroke (GEN) Discharge Disposition: HOME SELF-CARE
[2022-10-19 12:27] VITALS: BP 135/83; PULSE 64; TEMP 98.2
[2022-10-20] MEDS ORDERED: ASPIRIN 81 MG PO SCH (09:00)
--- NOTE | 2022-10-20 13:25 | CDI ---
Documentation Clarification Form Date: 10/20/2022 01:03:29 PM From: Sandy Cobb Admit Date: 10/16/2022 02:19:00 PM Patient Name: Xiao Sorto Visit Number: [id number] Discharge Date: 10/19/2022 02:59:00 PM ATTENTION: The Clinical Documentation Specialists (CDI) and [facility] Coding Staff appreciate your assistance in clarifying documentation. Please respond to the clarification below the line at the bottom and electronically sign. The CDI & [facility] Coding staff will review the response and follow-up if needed. Please note: Queries are made part of the Legal Health Record. If you have any questions, please contact the author of this message via ITS. Dr. Bernie Gregory Your patient has the documented symptoms of slight weakness on the left side, left sided numbness upper and lower extremities, and paresthesia in Progress notes and Consult note 10/17. Additional clarification regarding the etiology/cause of this symptom is requested. History/Risk Factors: patient is a 62 year old female who presented with left sided paresthesia. She awoke at 2am with symptoms of paresthesia of the entire left side of her body. She denies any weakness. Has a history of TIA, thyroid cancer, depression, and nicotine dependence. Clinical Indicators: patient was diagnosed with acute CVA involving the right duglas with left-sided paresthesia. NIHSS score of 3. Had a previous TIA and occasionally gets a mild left facial droop. Has a history of a pinched nerve on the left side of her groin which will sometimes cause numbness in her left lower extremity. History and physical 10/16: left upper and lower extremity paresthesia Consult note 10/17: new onset of numbness left side of the body ED note: patient denies any weakness Consult note 10/17: patient has a subtle/slight weakness on the left, facial sensation decreased on the left cheek Vitals: T 97.5 pulse 87 resp rate 18 BP 203/80 Treatment: Aspirin, Plavix, Lipitor Is there a corresponding diagnosis/etiology for this symptom of weakness? [ y ] Left side Hemiplegia due to current CVA [ ] Left side paresthesia and numbness [ ] Unable to determine [ ] Other, please specify MTDD
== END 2022-10-19 14:59 | disposition home or self-care (01) | DRG 65 ==
LOC: EC 12:06 → 3SCARD 14:19
PROVIDERS: ADMIT Internal Medicine; ATTEND Internal Medicine
DX: I63.9 Cerebral infarction, unspecified (principal); G81.94 Hemiplegia, unspecified affecting left nondominant side; R29.703 NIHSS score 3; R29.810 Facial weakness; I10 Essential (primary) hypertension; E66.01 Morbid (severe) obesity due to excess calories; Z68.34 Body mass index [BMI] 34.0-34.9, adult; M19.90 Unspecified osteoarthritis, unspecified site; M54.9 Dorsalgia, unspecified; F32.A Depression, unspecified; F17.210 Nicotine dependence, cigarettes, uncomplicated; E78.5 Hyperlipidemia, unspecified; E89.0 Postprocedural hypothyroidism; E11.9 Type 2 diabetes mellitus without complications; Z86.73 Personal history of transient ischemic attack (TIA), and cerebral infarction without residual deficits; Z85.850 Personal history of malignant neoplasm of thyroid; Z79.1 Long term (current) use of non-steroidal anti-inflammatories (NSAID); Z88.0 Allergy status to penicillin; Z88.6 Allergy status to analgesic agent; Z88.1 Allergy status to other antibiotic agents; Z88.8 Allergy status to other drugs, medicaments and biological substances
CPT/HCPCS: 36415; 70450; 70553; 71046; 80048; 80053; 80061; 82550; 83036; 84443; 84484; 85025; 85610; 85730; 93005; 93306; 93880; 94760; 96360; 96361; 99285

== ENCOUNTER → 2023-01-18 | Outpatient (CLI) | payer MEDICARE, OTHER ==
--- NOTE | 2023-01-19 10:45 | US ---
EXAMINATION TYPE: US thyroid st tissue head/neck DATE OF EXAM: 01/18/2023 COMPARISON: 07/23/2021 CLINICAL INDICATION: Female, 62 years old with history of Z85.850 PERSONAL HISTORY OF MALIGNANT NEOPL ASM OF; Left partial thyroidectomy. Neck pain. Thyroid nodules GLAND SIZE: Right Lobe: 5.3 x 2.7 x 2.5 cm Overall Parenchyma: heterogenous Left Lobe: 1.5 x 0.6 x 0.7 cm Overall Parenchyma: heterogenous Isthmus Thickness: 0.4 cm NODULES RIGHT: # of nodules measured on right: largest 3 measured 1. 1.4 X 1.1 x 1.4 cm, lower , mixed cystic and solid, hypoechoic nodule, which is wider than tall, with smooth margins, without echogenic foci. Prior size: 1.5 x 1.1 x 1.4 cm 2. 0.7 X 0.7 x 0.7 cm, mid , mixed cystic and solid, hypoechoic nodule, which is taller than wide, with smooth margins, without echogenic foci. Prior size: 0.8 x 0.7 x 0.8 cm 3. 0.9 X 0.6 x 0.9 cm, lower , solid or almost completely solid, hypoechoic nodule, which is wider than tall, with smooth margins, without echogenic foci. LEFT: # of nodules measured on left: 0 ISTHMUS: # of nodules measured in the isthmus: 0 Bilateral neck scanned, lymph nodes seen bilaterally IMPRESSION: As above 2017 ACR TI-RADS LEVEL: TR-RADS 3 - Mildly Suspicious: Follow if > 1.5 cm, FNA if > 2.5 cm *Highest TI-RADS level nodule reported
== END | disposition home or self-care (01) ==
LOC: RADUSWWP 15:39
PROVIDERS: ATTEND Family Medicine
DX: E04.2 Nontoxic multinodular goiter (principal); Z85.850 Personal history of malignant neoplasm of thyroid
CPT/HCPCS: 76536

== ENCOUNTER 2023-10-02 13:37 | Emergency (ER) | payer MEDICARE, OTHER | END 2023-10-02 16:25 | disposition home or self-care (01) | LOC: EC 13:37 | DX: M25.572 Pain in left ankle and joints of left foot (principal) | CPT/HCPCS: 99283 ==

== ENCOUNTER → 2023-11-29 | Outpatient (CLI) | payer MEDICARE, OTHER ==
--- NOTE | 2023-11-29 14:41 | XR ---
EXAMINATION TYPE: XR chest 2V DATE OF EXAM: 11/29/2023 COMPARISON: 10/16/2022 HISTORY: Shortness of breath TECHNIQUE: Frontal and lateral views of the chest are obtained. FINDINGS: Scattered senescent parenchymal changes noted. Hyperinflation compatible with COPD. New left upper lobe mass measuring 3.5 x 3.4 cm felt to reflect malignancy until proven otherwise. CT of the chest is recommended for further evaluation. The lungs are otherwise clear. Heart size is stable. Mediastinal structures are stable and grossly unremarkable. No evidence for hilar prominence. Degenerative changes dorsal spine. IMPRESSION: 1. New left upper lobe mass measuring 3.5 x 3.4 cm felt to reflect malignancy until proven otherwise. CT of the chest is recommended for further evaluation. [facility], , 11/29/2023 2:38 PM
[2023-11-29 19:43] LABS: Basophils # (A) 0.03 X 10*3/uL (0.00-0.10); Basophils % (A) 0.3 %; Eosinophils # (A) 0.08 X 10*3/uL (0.04-0.35); Eosinophils % (A) 0.8 %; HCT 44.2 % (37.2-46.3); HGB 14.5 g/dL (12.0-15.0); Lymphocytes # (A) 1.87 X 10*3/uL (0.90-5.00); MCH 29.5 pg (27.0-32.0); MCHC 32.8 g/dL (32.0-37.0); MCV 89.8 FL (80.0-97.0); Mean Platelet Volume 11.5 FL (9.5-12.2); Monocytes # (A) 0.55 X 10*3/uL (0.20-1.00); Monocytes % (A) 5.6 %; NRBC Per 100 WBC 0 X 10*3/uL (0.00-0.01); Neutrophils # (A) 7.27 X 10*3/uL (1.80-7.70); Neutrophils % (A) 73.7 %; Platelet Count 267 X 10*3/uL (140-440); RBC 4.92 X 10*6/uL (4.10-5.20); RDW 13.1 % (11.5-14.5); WBC 9.86 X 10*3/uL (4.50-10.00)
[2023-11-29 21:58] LABS: ALT 25 U/L (8-44); AST 17 U/L (13-35); Albumin 4.2 g/dL (3.8-4.9); Albumin/Globulin Ratio 1.35 Ratio (1.60-3.17); Alkaline Phosphatase 119 U/L (41-126); BUN/Creat Ratio 16.86 Ratio (12.00-20.00); Blood Urea Nitrogen 11.8 mg/dL (9.0-27.0); Calcium 9.4 mg/dL (8.7-10.3); Carbon Dioxide 26.6 mmol/L (21.6-31.8); Chloride 102 mmol/L (96-109); Chol/HDL Ratio 4.14 Ratio; Globulin 3.1 g/dL (1.6-3.3); Glucose 219 mg/dL (70-110); LDL Cholesterol,Calculated 81.8 mg/dL (0.0-131.0); Potassium 4.1 mmol/L (3.5-5.5); Sodium 140 mmol/L (135-145); Total Bilirubin 0.6 mg/dL (0.3-1.2); Total Protein 7.3 g/dL (6.2-8.2)
== END | disposition home or self-care (01) ==
LOC: LABWHC1 13:30
PROVIDERS: ATTEND Family Medicine
DX: I10 Essential (primary) hypertension (principal); R06.2 Wheezing
CPT/HCPCS: 36415; 71046; 80053; 80061; 83036; 84443; 85025

== ENCOUNTER → 2023-11-29 | Outpatient (CLI) | payer MEDICARE, OTHER ==
--- NOTE | 2023-11-29 16:25 | US ---
EXAMINATION TYPE: US thyroid st tissue head/neck DATE OF EXAM: 11/29/2023 COMPARISON: 01/18/2023. CLINICAL INDICATION: Female, 63 years old with history of R062 Wheezing E89.0; lt thyroidectomy TECHNIQUE: Grayscale and color Doppler imaging of the thyroid gland. GLAND SIZE: Right Lobe: 6.0 x 1.9 x 3.2 cm Overall Parenchyma: heterogeneous Left Lobe: Surgically absent NODULES RIGHT: # of nodules measured on right: multiple, measured largest 1. 1.5 X 1.1 x 1.5 cm, mid, Prior size: 1.4 x 1.1 x 1.4 cm TIRADS Score: 3 TIRADS Category 3: Mildly Suspicious Composition: Mixed cystic and solid (1 point). Echogenicity: Hypoechoic (2 points). Shape: Wider than tall (0 points). Margin: Smooth (0 points). Echogenic foci: None or large comet-tail artifacts (0 points) Recommendation: If >2.5cm: FNA; If >1.5cm: Follow up at 1,3,5 years LEFT: possible residual tissue noted = 2.6 x 0.9 x 1.1cm ISTHMUS: # of nodules measured in the isthmus: 0 Bilateral neck scanned, no evidence of lymphadenopathy. IMPRESSION: 1. Right thyroid nodule meets criteria for follow-up. 2. Left thyroid gland is surgically absent with possible residual tissue present. [facility], , 11/29/2023 4:23 PM
== END | disposition home or self-care (01) ==
LOC: RADUSWWP 12:49
PROVIDERS: ATTEND Internal Medicine
DX: E04.1 Nontoxic single thyroid nodule (principal); E89.0 Postprocedural hypothyroidism; R06.2 Wheezing
CPT/HCPCS: 76536